=== PATIENT | female | born 1950 | race Two or more races ===

== ENCOUNTER 2021-06-09 12:12 | Inpatient (IN) | payer OTHER ==
[2021-06-09] MEDS ORDERED: ACETAMINOPHEN 1000 MG/100 ML VIAL (NON FORMULARY) IVPB ONE (14:20)
[2021-06-09] MEDS ORDERED: ACETAMINOPHEN INJECTION 100 ML IVPB ONE (14:24)
[2021-06-09 14:51] LABS: BASO % 0.8 % (0-2.0); HEMATOCRIT 42.4 % (32.4-45.2); HEMOGLOBIN 14.1 GM/dL (10.7-15.3); LYMPH % 21.6 % (8-40); MCH 28.8 pg (25.7-33.7); MCHC 33.2 g/dl (32.0-36.0); MEAN CELL VOLUME 86.7 fl (80-96); MEAN PLT VOLUME 8.3 fl (7.5-11.1); MONO % 8.8 % (3.8-10.2); NEUT % 62.8 % (42.8-82.8); PLATELET COUNT 393 10^3/uL (134-434); RBC 4.89 M/mm3 (3.60-5.2); RDW 15.1 % (11.6-15.6); WHITE BLOOD COUNT 10.3 K/mm3 (4.0-10.0)
[2021-06-09 15:16] LABS: CHLORIDE 101 mmol/L (98-107); SODIUM 139 mmol/L (136-145)
[2021-06-09 15:18] LABS: CALCIUM 9.7 mg/dL (8.5-10.1)
[2021-06-09 15:19] LABS: ALBUMIN 2.9 g/dl (3.4-5.0); ANION GAP 9 MMOL/L (8-16); BLOOD UREA NITROGEN 18.3 mg/dL (7-18); CO2 29 mmol/L (21-32); GLUCOSE,RANDOM 107 mg/dL (74-106)
[2021-06-09 15:22] LABS: CREATININE 0.7 mg/dL (0.55-1.3); SGOT/AST 10 U/L (15-37); SGPT/ALT 16 U/L (13-61)
[2021-06-09 15:23] LABS: BILIRUBIN,TOTAL 0.2 mg/dL (0.2-1); TOT PROT 8.4 g/dl (6.4-8.2)
[2021-06-09 15:25] LABS: ALK PHOS 88 U/L (45-117)
[2021-06-09 16:26] LABS: URINE APPEARANCE CLEAR; URINE BILIRUBIN NEGATIVE (NEGATIVE); URINE COLOR YELLOW; URINE GLUCOSE (UA) NEGATIVE (NEGATIVE); URINE KETONE NEGATIVE (NEGATIVE); URINE LEUK ESTERASE NEGATIVE (NEGATIVE); URINE NITRITE NEGATIVE (NEGATIVE); URINE PROTEIN NEGATIVE (NEGATIVE)
[2021-06-09] MEDS ORDERED: ASPIRIN 81 MG CHEWABLE TABLETS PO ONE (19:24)
[2021-06-09] MEDS ORDERED: ASPIRIN 81 MG CHEWABLE TABLETS ONE (19:50)
[2021-06-09] MEDS ORDERED: ALBUTEROL SO4 HFA INHALER IH PRN (21:52)
[2021-06-09] MEDS ORDERED: FAMOTIDINE 20 MG TABLET PEG SCH (22:00)
[2021-06-09] MEDS ORDERED: GABAPENTIN 400 MG CAPSULE GT SCH (22:00)
[2021-06-09] MEDS ORDERED: MONTELUKAST NA 10 MG TABLET ONE (23:21)
[2021-06-09] MEDS ORDERED: clonazePAM 0.5 MG TABLET ONE (23:21)
[2021-06-09] MEDS ORDERED: HEPARIN NA (PORCINE) 5,000 UNITS/ML 1ML VIAL ONE (23:21)
[2021-06-09] MEDS: clonazePAM 0.5 MG TABLET GT SCH (23:29)
[2021-06-09] MEDS: MONTELUKAST NA 10 MG TABLET GT SCH (23:29)
[2021-06-09] MEDS: DOCUSATE NA 100 MG/10 ML UNIT-DOSE CUPS GT SCH (23:29)
[2021-06-09] MEDS: FAMOTIDINE 40 MG/5 ML ORAL SUSPENSION PEG SCH (23:30)
[2021-06-09] MEDS: GABAPENTIN 250 MG/5 ML ORAL SOLUTION, 470 ML BOTTLE GT SCH (23:30)
[2021-06-09] MEDS: BUDESONIDE/FORMETEROL FUMARATE 160/4.5 mcg INHALER IH SCH (23:30)
[2021-06-09] MEDS: HEPARIN NA (PORCINE) 5,000 UNITS/ML 1ML VIAL SQ SCH (23:30)
[2021-06-10] MEDS ORDERED: ACETAMINOPHEN 1000 MG/100 ML VIAL (NON FORMULARY) IVPB ONE (06:16)
[2021-06-10] MEDS ORDERED: ACETAMINOPHEN INJECTION 100 ML IVPB ONE (06:20)
[2021-06-10] MEDS ORDERED: HEPARIN NA (PORCINE) 5,000 UNITS/ML 1ML VIAL ONE ×2 (06:59→17:13)
[2021-06-10] MEDS ORDERED: LEVOTHYROXINE SODIUM 200 MCG GT SCH (07:00)
[2021-06-10] MEDS: HEPARIN NA (PORCINE) 5,000 UNITS/ML 1ML VIAL SQ SCH ×3 (07:01→23:29)
[2021-06-10 08:27] LABS: BASO % 0.8 % (0-2.0); EOS % 5.9 % (0-4.5); HEMOGLOBIN 10.7 GM/dL (10.7-15.3); LYMPH % 22.7 % (8-40); MCH 28.8 pg (25.7-33.7); MCHC 33.5 g/dl (32.0-36.0); MEAN PLT VOLUME 8.2 fl (7.5-11.1); MONO % 9.8 % (3.8-10.2); NEUT % 60.8 % (42.8-82.8); PLATELET COUNT 423 10^3/uL (134-434); RBC 3.73 M/mm3 (3.60-5.2); RDW 14.9 % (11.6-15.6); WHITE BLOOD COUNT 10.3 K/mm3 (4.0-10.0)
[2021-06-10] MEDS ORDERED: PT OWN MED DRAWER 7, Y5N ONE ×3 (08:29→11:17)
[2021-06-10 08:49] LABS: CHLORIDE 105 mmol/L (98-107); SODIUM 140 mmol/L (136-145)
[2021-06-10 08:56] LABS: ANION GAP 5 MMOL/L (8-16); CALCIUM 9.2 mg/dL (8.5-10.1); CO2 30 mmol/L (21-32); GLUCOSE,RANDOM 112 mg/dL (74-106); MAGNESIUM 2.4 mg/dL (1.8-2.4)
[2021-06-10 08:59] LABS: CHOLESTEROL 165 mg/dL (50-200); CREATININE 0.6 mg/dL (0.55-1.3); SGOT/AST 11 U/L (15-37); SGPT/ALT 13 U/L (13-61); TRIGLYCERIDES 161 mg/dL (0-150)
[2021-06-10 09:00] LABS: BILIRUBIN,TOTAL 0.3 mg/dL (0.2-1); LDL CHOLESTEROL (ONLY SJRH) 112 mg/dL (5-100); TOT PROT 6.9 g/dl (6.4-8.2)
[2021-06-10 09:01] LABS: ALK PHOS 64 U/L (45-117)
[2021-06-10 09:02] LABS: HDL CHOLESTEROL 28 mg/dL (40-60)
[2021-06-10 09:17] LABS: ALBUMIN 2.2 g/dl (3.4-5.0)
[2021-06-10] MEDS: LEVOTHYROXINE 125 MCG, LEVOTHYROXINE 100 MCG PO SCH (11:52)
[2021-06-10] MEDS: clonazePAM 0.5 MG TABLET GT SCH ×2 (11:53→23:28)
[2021-06-10] MEDS: DOCUSATE NA 100 MG/10 ML UNIT-DOSE CUPS GT SCH ×2 (11:53→23:28)
[2021-06-10] MEDS: GABAPENTIN 250 MG/5 ML ORAL SOLUTION, 470 ML BOTTLE GT SCH ×2 (11:53→23:25)
[2021-06-10] MEDS: FOLIC ACID 1 MG TABLET (FP) GT SCH (11:53)
[2021-06-10] MEDS: MULTIVIT-MINERALS ORAL LIQUID GT SCH (11:53)
[2021-06-10] MEDS: ASPIRIN 81 MG CHEWABLE TABLETS GT SCH (11:53)
[2021-06-10] MEDS: FAMOTIDINE 40 MG/5 ML ORAL SUSPENSION PEG SCH ×2 (11:54→23:24)
[2021-06-10] MEDS: BUDESONIDE/FORMETEROL FUMARATE 160/4.5 mcg INHALER IH SCH ×2 (14:07→23:25)
[2021-06-10] MEDS ORDERED: ACETAMINOPHEN 650 MG/20.3 ML ORAL SOLUTION (CUPS) PO PRN (21:05)
[2021-06-10] MEDS ORDERED: ACETAMINOPHEN 650 MG/20.3 ML ORAL SOLUTION (CUPS) ONE (21:17)
[2021-06-10] MEDS ORDERED: VANCOMYCIN 1 GRAM (PRE-DOCKED) 1,000 MG/250 ML BAG IVPB ONE ×2 (21:19→21:26)
[2021-06-10] MEDS: ACETAMINOPHEN 650 MG/20.3 ML ORAL SOLUTION (CUPS) GT PRN (21:23)
[2021-06-10] MEDS: ATORVASTATIN CA 40 MG TABLET (FP) NGT SCH (23:28)
[2021-06-10] MEDS: MONTELUKAST NA 10 MG TABLET GT SCH (23:29)
[2021-06-11] MEDS: HEPARIN NA (PORCINE) 5,000 UNITS/ML 1ML VIAL SQ SCH ×3 (06:38→23:29)
[2021-06-11 07:40] LABS: EOS % 6.4 % (0-4.5); HEMATOCRIT 33.5 % (32.4-45.2); HEMOGLOBIN 11.1 GM/dL (10.7-15.3); LYMPH % 26.5 % (8-40); MCH 28.6 pg (25.7-33.7); MCHC 33.2 g/dl (32.0-36.0); MEAN CELL VOLUME 86.1 fl (80-96); MEAN PLT VOLUME 7.6 fl (7.5-11.1); MONO % 12.9 % (3.8-10.2); NEUT % 53.2 % (42.8-82.8); PLATELET COUNT 349 10^3/uL (134-434); RBC 3.89 M/mm3 (3.60-5.2); RDW 14.9 % (11.6-15.6); WHITE BLOOD COUNT 17.3 K/mm3 (4.0-10.0)
[2021-06-11] MEDS: LEVOTHYROXINE 125 MCG, LEVOTHYROXINE 100 MCG PO SCH (08:18)
[2021-06-11] MEDS ORDERED: PT OWN MED DRAWER 7, Y5N ONE ×3 (08:55→09:55)
[2021-06-11] MEDS: FOLIC ACID 1 MG TABLET (FP) GT SCH (09:02)
[2021-06-11] MEDS: clonazePAM 0.5 MG TABLET GT SCH ×2 (09:02→23:28)
[2021-06-11] MEDS: ASPIRIN 81 MG CHEWABLE TABLETS GT SCH (09:02)
[2021-06-11] MEDS: BUDESONIDE/FORMETEROL FUMARATE 160/4.5 mcg INHALER IH SCH ×2 (09:03→23:22)
[2021-06-11] MEDS: DOCUSATE NA 100 MG/10 ML UNIT-DOSE CUPS GT SCH ×2 (09:03→21:23)
[2021-06-11] MEDS: GABAPENTIN 250 MG/5 ML ORAL SOLUTION, 470 ML BOTTLE GT SCH ×2 (10:36→23:28)
[2021-06-11] MEDS: MULTIVIT-MINERALS ORAL LIQUID GT SCH (10:36)
[2021-06-11] MEDS: FAMOTIDINE 40 MG/5 ML ORAL SUSPENSION PEG SCH ×2 (10:37→23:30)
[2021-06-11] MEDS ORDERED: SODIUM CHLORIDE 1,000 ML IV STA (12:05)
[2021-06-11] MEDS ORDERED: DEXTROSE 5%-WATER 100 ML IVPB ONE (12:23)
[2021-06-11] MEDS ORDERED: CEFEPIME HCL 1 GM VIAL (RESTRICTED TO ID) ONE (12:23)
[2021-06-11] MEDS: CEFEPIME 1 GM in DEXTROSE 5%-WATER 1 GM/100 ML BAG IVPB SCH ×2 (12:37→18:57)
[2021-06-11] MEDS: VANCOMYCIN 1 GRAM (PRE-DOCKED) 1,000 MG/250 ML BAG IVPB SCH ×2 (12:37→23:31)
[2021-06-11 16:42] VITALS: BMI 28.8
[2021-06-11] MEDS ORDERED: SODIUM CHLORIDE 500 ML IV STA (17:25)
[2021-06-11] MEDS: SODIUM CHLORIDE 1,000 ML IV SCH (18:57)
[2021-06-11] MEDS: ATORVASTATIN CA 40 MG TABLET (FP) NGT SCH (23:28)
[2021-06-11] MEDS: MONTELUKAST NA 10 MG TABLET GT SCH (23:29)
[2021-06-12] MEDS ORDERED: CEFEPIME HCL 1 GM VIAL (RESTRICTED TO ID) ONE ×4 (01:38→22:09)
[2021-06-12] MEDS ORDERED: DEXTROSE 5%-WATER 100 ML IVPB ONE ×4 (01:39→22:09)
[2021-06-12] MEDS: CEFEPIME 1 GM in DEXTROSE 5%-WATER 1 GM/100 ML BAG IVPB SCH ×3 (01:56→17:28)
[2021-06-12] MEDS: LEVOTHYROXINE 125 MCG, LEVOTHYROXINE 100 MCG PO SCH (06:29)
[2021-06-12] MEDS: HEPARIN NA (PORCINE) 5,000 UNITS/ML 1ML VIAL SQ SCH ×3 (06:29→21:37)
[2021-06-12 06:49] LABS: BASO % 0.8 % (0-2.0); EOS % 9.8 % (0-4.5); HEMATOCRIT 29.7 % (32.4-45.2); LYMPH % 26.7 % (8-40); MCHC 33.7 g/dl (32.0-36.0); MEAN CELL VOLUME 85.9 fl (80-96); MEAN PLT VOLUME 8.1 fl (7.5-11.1); MONO % 9.9 % (3.8-10.2); NEUT % 52.8 % (42.8-82.8); PLATELET COUNT 373 10^3/uL (134-434); RBC 3.46 M/mm3 (3.60-5.2); RDW 14.9 % (11.6-15.6); WHITE BLOOD COUNT 9.3 K/mm3 (4.0-10.0)
[2021-06-12 07:18] LABS: CALCIUM 8.8 mg/dL (8.5-10.1)
[2021-06-12 07:19] LABS: BLOOD UREA NITROGEN 13.9 mg/dL (7-18)
[2021-06-12 07:21] LABS: CREATININE 0.5 mg/dL (0.55-1.3)
[2021-06-12 07:23] LABS: BILIRUBIN,TOTAL 0.5 mg/dL (0.2-1); TOT PROT 6.3 g/dl (6.4-8.2)
[2021-06-12] MEDS: FOLIC ACID 1 MG TABLET (FP) GT SCH (09:01)
[2021-06-12] MEDS: ASPIRIN 81 MG CHEWABLE TABLETS GT SCH (09:01)
[2021-06-12] MEDS: MULTIVIT-MINERALS ORAL LIQUID GT SCH (09:01)
[2021-06-12] MEDS: DOCUSATE NA 100 MG/10 ML UNIT-DOSE CUPS GT SCH ×2 (09:01→21:36)
[2021-06-12] MEDS: GABAPENTIN 250 MG/5 ML ORAL SOLUTION, 470 ML BOTTLE GT SCH ×2 (09:01→21:36)
[2021-06-12] MEDS: clonazePAM 0.5 MG TABLET GT SCH ×2 (09:01→21:36)
[2021-06-12] MEDS: FAMOTIDINE 40 MG/5 ML ORAL SUSPENSION PEG SCH ×2 (09:02→21:37)
[2021-06-12] MEDS: BUDESONIDE/FORMETEROL FUMARATE 160/4.5 mcg INHALER IH SCH ×2 (09:02→21:37)
[2021-06-12] MEDS: VANCOMYCIN 1 GRAM (PRE-DOCKED) 1,000 MG/250 ML BAG IVPB SCH (11:43)
[2021-06-12] MEDS: ACETAMINOPHEN 650 MG/20.3 ML ORAL SOLUTION (CUPS) GT PRN (13:38)
[2021-06-12] MEDS: INSULIN SLIDING SCALE (NOVOLOG) 1 VIAL SQ SCH ×2 (17:09→21:36)
[2021-06-12] MEDS ORDERED: INSULIN (NOVOLOG) ASPART 100 UNITS/ML 10ML VIAL ONE (19:42)
[2021-06-12] MEDS: ATORVASTATIN CA 40 MG TABLET (FP) NGT SCH (21:36)
[2021-06-12] MEDS: MONTELUKAST NA 10 MG TABLET GT SCH (21:37)
[2021-06-12] MEDS: SODIUM CHLORIDE 1,000 ML IV SCH (21:38)
[2021-06-12] MEDS ORDERED: ACETAMINOPHEN 1000 MG/100 ML VIAL (NON FORMULARY) IVPB ONE (21:58)
[2021-06-13] MEDS: VANCOMYCIN 1 GRAM (PRE-DOCKED) 1,000 MG/250 ML BAG IVPB SCH ×3 (01:30→23:37)
[2021-06-13] MEDS: CEFEPIME 1 GM in DEXTROSE 5%-WATER 1 GM/100 ML BAG IVPB SCH ×3 (03:13→17:18)
[2021-06-13] MEDS: HEPARIN NA (PORCINE) 5,000 UNITS/ML 1ML VIAL SQ SCH ×3 (05:48→21:33)
[2021-06-13] MEDS: LEVOTHYROXINE 125 MCG, LEVOTHYROXINE 100 MCG PO SCH (06:33)
[2021-06-13] MEDS: INSULIN SLIDING SCALE (NOVOLOG) 1 VIAL SQ SCH ×4 (06:33→21:33)
[2021-06-13 07:14] LABS: BASO % 0.9 % (0-2.0); HEMATOCRIT 30.2 % (32.4-45.2); HEMOGLOBIN 10.2 GM/dL (10.7-15.3); LYMPH % 23.5 % (8-40); MCH 29.3 pg (25.7-33.7); MCHC 33.6 g/dl (32.0-36.0); MEAN CELL VOLUME 87.1 fl (80-96); MEAN PLT VOLUME 8.1 fl (7.5-11.1); MONO % 10.8 % (3.8-10.2); NEUT % 55.8 % (42.8-82.8); PLATELET COUNT 356 10^3/uL (134-434); RBC 3.47 M/mm3 (3.60-5.2); RDW 15.2 % (11.6-15.6); WHITE BLOOD COUNT 9.5 K/mm3 (4.0-10.0)
[2021-06-13 07:43] LABS: ALBUMIN 2.1 g/dl (3.4-5.0); BLOOD UREA NITROGEN 10.5 mg/dL (7-18); CALCIUM 8.8 mg/dL (8.5-10.1)
[2021-06-13 07:47] LABS: CREATININE 0.5 mg/dL (0.55-1.3)
[2021-06-13 07:48] LABS: TOT PROT 6.2 g/dl (6.4-8.2)
[2021-06-13 07:49] LABS: BILIRUBIN,TOTAL 0.4 mg/dL (0.2-1)
[2021-06-13] MEDS ORDERED: PT OWN MED DRAWER 7, Y5N ONE ×5 (09:57→21:37)
[2021-06-13] MEDS ORDERED: CEFEPIME HCL 1 GM VIAL (RESTRICTED TO ID) ONE ×3 (09:57→19:58)
[2021-06-13] MEDS ORDERED: DEXTROSE 5%-WATER 100 ML IVPB ONE ×3 (09:58→19:58)
[2021-06-13] MEDS: FOLIC ACID 1 MG TABLET (FP) GT SCH (10:10)
[2021-06-13] MEDS: clonazePAM 0.5 MG TABLET GT SCH ×2 (10:10→21:33)
[2021-06-13] MEDS: DOCUSATE NA 100 MG/10 ML UNIT-DOSE CUPS GT SCH ×2 (10:10→21:32)
[2021-06-13] MEDS: MULTIVIT-MINERALS ORAL LIQUID GT SCH (10:11)
[2021-06-13] MEDS: FAMOTIDINE 40 MG/5 ML ORAL SUSPENSION PEG SCH ×2 (10:11→21:38)
[2021-06-13] MEDS: ASPIRIN 81 MG CHEWABLE TABLETS GT SCH (10:13)
[2021-06-13] MEDS: SODIUM CHLORIDE 1,000 ML IV SCH ×2 (12:25→23:37)
[2021-06-13] MEDS: GABAPENTIN 250 MG/5 ML ORAL SOLUTION, 470 ML BOTTLE GT SCH ×2 (12:37→21:34)
[2021-06-13] MEDS: BUDESONIDE/FORMETEROL FUMARATE 160/4.5 mcg INHALER IH SCH ×2 (12:40→21:35)
[2021-06-13] MEDS: MONTELUKAST NA 10 MG TABLET GT SCH (21:33)
[2021-06-13] MEDS: ATORVASTATIN CA 40 MG TABLET (FP) NGT SCH (21:33)
[2021-06-13] MEDS ORDERED: INSULIN (NOVOLOG) ASPART 100 UNITS/ML 10ML VIAL ONE (21:36)
[2021-06-14] MEDS: CEFEPIME 1 GM in DEXTROSE 5%-WATER 1 GM/100 ML BAG IVPB SCH ×3 (01:56→18:01)
[2021-06-14] MEDS: HEPARIN NA (PORCINE) 5,000 UNITS/ML 1ML VIAL SQ SCH ×3 (06:34→22:00)
[2021-06-14] MEDS: INSULIN SLIDING SCALE (NOVOLOG) 1 VIAL SQ SCH ×4 (06:35→22:21)
[2021-06-14] MEDS: LEVOTHYROXINE 125 MCG, LEVOTHYROXINE 100 MCG PO SCH (06:35)
[2021-06-14] MEDS ORDERED: DEXTROSE 5%-WATER 100 ML IVPB ONE ×2 (09:38→16:56)
[2021-06-14] MEDS ORDERED: CEFEPIME HCL 1 GM VIAL (RESTRICTED TO ID) ONE ×2 (09:38→16:56)
[2021-06-14] MEDS: ASPIRIN 81 MG CHEWABLE TABLETS GT SCH (09:42)
[2021-06-14] MEDS: clonazePAM 0.5 MG TABLET GT SCH ×2 (09:42→22:01)
[2021-06-14] MEDS: MULTIVIT-MINERALS ORAL LIQUID GT SCH (09:43)
[2021-06-14] MEDS: FOLIC ACID 1 MG TABLET (FP) GT SCH (09:43)
[2021-06-14] MEDS: DOCUSATE NA 100 MG/10 ML UNIT-DOSE CUPS GT SCH ×2 (09:43→21:59)
[2021-06-14] MEDS: GABAPENTIN 250 MG/5 ML ORAL SOLUTION, 470 ML BOTTLE GT SCH ×2 (09:44→22:01)
[2021-06-14] MEDS: FAMOTIDINE 40 MG/5 ML ORAL SUSPENSION PEG SCH ×2 (09:44→22:02)
[2021-06-14] MEDS: BUDESONIDE/FORMETEROL FUMARATE 160/4.5 mcg INHALER IH SCH ×2 (09:45→22:18)
[2021-06-14] MEDS: VANCOMYCIN 1 GRAM (PRE-DOCKED) 1,000 MG/250 ML BAG IVPB SCH (12:42)
[2021-06-14] MEDS: ATORVASTATIN CA 40 MG TABLET (FP) NGT SCH (21:59)
[2021-06-14] MEDS: MONTELUKAST NA 10 MG TABLET GT SCH (22:01)
[2021-06-15] MEDS: VANCOMYCIN 1 GRAM (PRE-DOCKED) 1,000 MG/250 ML BAG IVPB SCH ×3 (00:40→23:42)
[2021-06-15] MEDS ORDERED: CEFEPIME HCL 1 GM VIAL (RESTRICTED TO ID) ONE ×4 (02:50→23:39)
[2021-06-15] MEDS ORDERED: DEXTROSE 5%-WATER 100 ML IVPB ONE ×4 (02:51→23:39)
[2021-06-15] MEDS: CEFEPIME 1 GM in DEXTROSE 5%-WATER 1 GM/100 ML BAG IVPB SCH ×3 (02:58→17:09)
[2021-06-15] MEDS: LEVOTHYROXINE 125 MCG, LEVOTHYROXINE 100 MCG PO SCH (06:26)
[2021-06-15] MEDS: SODIUM CHLORIDE 1,000 ML IV SCH ×2 (06:26→22:08)
[2021-06-15] MEDS: HEPARIN NA (PORCINE) 5,000 UNITS/ML 1ML VIAL SQ SCH ×3 (06:26→22:21)
[2021-06-15] MEDS: INSULIN SLIDING SCALE (NOVOLOG) 1 VIAL SQ SCH ×4 (07:56→22:21)
[2021-06-15] MEDS ORDERED: PT OWN MED DRAWER 7, Y5N ONE ×2 (09:38→22:16)
[2021-06-15] MEDS: clonazePAM 0.5 MG TABLET GT SCH ×2 (09:55→22:21)
[2021-06-15] MEDS: GABAPENTIN 250 MG/5 ML ORAL SOLUTION, 470 ML BOTTLE GT SCH ×2 (09:55→22:21)
[2021-06-15] MEDS: FAMOTIDINE 40 MG/5 ML ORAL SUSPENSION PEG SCH ×2 (09:56→22:21)
[2021-06-15] MEDS: MULTIVIT-MINERALS ORAL LIQUID GT SCH (09:56)
[2021-06-15] MEDS: DOCUSATE NA 100 MG/10 ML UNIT-DOSE CUPS GT SCH ×2 (09:56→22:20)
[2021-06-15] MEDS: FOLIC ACID 1 MG TABLET (FP) GT SCH (09:57)
[2021-06-15] MEDS: ASPIRIN 81 MG CHEWABLE TABLETS GT SCH (10:02)
[2021-06-15 10:14] LABS: BASO % 1.4 % (0-2.0); EOS % 7.4 % (0-4.5); HEMATOCRIT 33.6 % (32.4-45.2); HEMOGLOBIN 11.2 GM/dL (10.7-15.3); LYMPH % 23.1 % (8-40); MCH 28.3 pg (25.7-33.7); MCHC 33.5 g/dl (32.0-36.0); MEAN CELL VOLUME 84.5 fl (80-96); MEAN PLT VOLUME 7.4 fl (7.5-11.1); MONO % 9.9 % (3.8-10.2); NEUT % 58.2 % (42.8-82.8); PLATELET COUNT 386 10^3/uL (134-434); RBC 3.97 M/mm3 (3.60-5.2); RDW 15.1 % (11.6-15.6); WHITE BLOOD COUNT 9.4 K/mm3 (4.0-10.0)
[2021-06-15 10:50] LABS: CREATININE 0.5 mg/dL (0.55-1.3)
[2021-06-15 10:51] LABS: ALBUMIN 2.2 g/dl (3.4-5.0); BLOOD UREA NITROGEN 6.5 mg/dL (7-18); CALCIUM 9.4 mg/dL (8.5-10.1); TOT PROT 6.7 g/dl (6.4-8.2)
[2021-06-15 11:00] LABS: BILIRUBIN,TOTAL 0.4 mg/dL (0.2-1)
[2021-06-15] MEDS: BUDESONIDE/FORMETEROL FUMARATE 160/4.5 mcg INHALER IH SCH ×2 (12:41→22:22)
[2021-06-15] MEDS: ACETAMINOPHEN 650 MG/20.3 ML ORAL SOLUTION (CUPS) GT PRN (22:19)
[2021-06-15] MEDS: MONTELUKAST NA 10 MG TABLET GT SCH (22:20)
[2021-06-15] MEDS: ATORVASTATIN CA 40 MG TABLET (FP) NGT SCH (22:20)
[2021-06-16] MEDS: CEFEPIME 1 GM in DEXTROSE 5%-WATER 1 GM/100 ML BAG IVPB SCH ×3 (03:20→17:16)
[2021-06-16] MEDS ORDERED: PT OWN MED DRAWER 7, Y5N ONE ×4 (06:13→21:54)
[2021-06-16] MEDS: HEPARIN NA (PORCINE) 5,000 UNITS/ML 1ML VIAL SQ SCH ×3 (06:18→21:58)
[2021-06-16] MEDS: INSULIN SLIDING SCALE (NOVOLOG) 1 VIAL SQ SCH ×4 (06:18→21:59)
[2021-06-16] MEDS ORDERED: DEXTROSE 5%-WATER 100 ML IVPB ONE ×2 (09:22→16:54)
[2021-06-16] MEDS ORDERED: CEFEPIME HCL 1 GM VIAL (RESTRICTED TO ID) ONE ×2 (09:22→16:54)
[2021-06-16] MEDS: FOLIC ACID 1 MG TABLET (FP) GT SCH (09:24)
[2021-06-16] MEDS: ASPIRIN 81 MG CHEWABLE TABLETS GT SCH (09:24)
[2021-06-16] MEDS: DOCUSATE NA 100 MG/10 ML UNIT-DOSE CUPS GT SCH ×2 (09:25→21:58)
[2021-06-16] MEDS: LEVOTHYROXINE 125 MCG, LEVOTHYROXINE 100 MCG PO SCH (09:25)
[2021-06-16] MEDS: clonazePAM 0.5 MG TABLET GT SCH ×2 (09:25→22:03)
[2021-06-16] MEDS: FAMOTIDINE 40 MG/5 ML ORAL SUSPENSION PEG SCH ×2 (09:25→21:59)
[2021-06-16] MEDS: GABAPENTIN 250 MG/5 ML ORAL SOLUTION, 470 ML BOTTLE GT SCH ×2 (09:26→21:59)
[2021-06-16] MEDS: MULTIVIT-MINERALS ORAL LIQUID GT SCH (09:26)
[2021-06-16] MEDS: BUDESONIDE/FORMETEROL FUMARATE 160/4.5 mcg INHALER IH SCH ×2 (09:27→21:59)
[2021-06-16] MEDS: SODIUM CHLORIDE 1,000 ML IV SCH (21:52)
[2021-06-16] MEDS: ATORVASTATIN CA 40 MG TABLET (FP) NGT SCH (21:59)
[2021-06-16] MEDS: MONTELUKAST NA 10 MG TABLET GT SCH (21:59)
[2021-06-16] MEDS: ACETAMINOPHEN 650 MG/20.3 ML ORAL SOLUTION (CUPS) GT PRN (22:00)
[2021-06-17] MEDS ORDERED: CEFEPIME HCL 1 GM VIAL (RESTRICTED TO ID) ONE ×4 (02:09→17:35)
[2021-06-17] MEDS ORDERED: DEXTROSE 5%-WATER 100 ML IVPB ONE ×2 (02:09→09:02)
[2021-06-17] MEDS: CEFEPIME 1 GM in DEXTROSE 5%-WATER 1 GM/100 ML BAG IVPB SCH ×3 (02:17→17:51)
[2021-06-17] MEDS ORDERED: PT OWN MED DRAWER 7, Y5N ONE ×5 (06:48→22:20)
[2021-06-17] MEDS: LEVOTHYROXINE 125 MCG, LEVOTHYROXINE 100 MCG PO SCH (07:34)
[2021-06-17] MEDS: INSULIN SLIDING SCALE (NOVOLOG) 1 VIAL SQ SCH ×4 (07:38→21:35)
[2021-06-17] MEDS: ASPIRIN 81 MG CHEWABLE TABLETS GT SCH (09:07)
[2021-06-17] MEDS: MULTIVIT-MINERALS ORAL LIQUID GT SCH (09:07)
[2021-06-17] MEDS: clonazePAM 0.5 MG TABLET GT SCH ×2 (09:07→21:35)
[2021-06-17] MEDS: FOLIC ACID 1 MG TABLET (FP) GT SCH (09:07)
[2021-06-17] MEDS: DOCUSATE NA 100 MG/10 ML UNIT-DOSE CUPS GT SCH ×2 (09:07→21:35)
[2021-06-17] MEDS: GABAPENTIN 250 MG/5 ML ORAL SOLUTION, 470 ML BOTTLE GT SCH ×2 (09:08→22:42)
[2021-06-17] MEDS: FAMOTIDINE 40 MG/5 ML ORAL SUSPENSION PEG SCH ×2 (09:08→21:36)
[2021-06-17] MEDS: BUDESONIDE/FORMETEROL FUMARATE 160/4.5 mcg INHALER IH SCH ×2 (09:09→21:36)
[2021-06-17 12:37] LABS: BASO % 0.8 % (0-2.0); EOS % 6.4 % (0-4.5); HEMATOCRIT 32.8 % (32.4-45.2); HEMOGLOBIN 11.1 GM/dL (10.7-15.3); LYMPH % 18.9 % (8-40); MCHC 33.9 g/dl (32.0-36.0); MEAN CELL VOLUME 85.7 fl (80-96); MEAN PLT VOLUME 7.6 fl (7.5-11.1); MONO % 9.6 % (3.8-10.2); NEUT % 64.3 % (42.8-82.8); PLATELET COUNT 353 10^3/uL (134-434); RBC 3.82 M/mm3 (3.60-5.2); WHITE BLOOD COUNT 9.9 K/mm3 (4.0-10.0)
[2021-06-17 13:01] LABS: ALBUMIN 2.1 g/dl (3.4-5.0); CALCIUM 8.7 mg/dL (8.5-10.1)
[2021-06-17 13:02] LABS: BLOOD UREA NITROGEN 10.4 mg/dL (7-18)
[2021-06-17 13:05] LABS: CREATININE 0.6 mg/dL (0.55-1.3)
[2021-06-17 13:06] LABS: BILIRUBIN,TOTAL 0.2 mg/dL (0.2-1); TOT PROT 6.4 g/dl (6.4-8.2)
[2021-06-17] MEDS: SODIUM CHLORIDE 1,000 ML IV SCH (17:51)
[2021-06-17] MEDS: ATORVASTATIN CA 40 MG TABLET (FP) NGT SCH (21:35)
[2021-06-17] MEDS: MONTELUKAST NA 10 MG TABLET GT SCH (21:36)
[2021-06-18] MEDS: CEFEPIME 1 GM in DEXTROSE 5%-WATER 1 GM/100 ML BAG IVPB SCH ×2 (02:00→09:55)
[2021-06-18] MEDS ORDERED: CEFEPIME HCL 1 GM VIAL (RESTRICTED TO ID) ONE ×2 (02:29→08:44)
[2021-06-18] MEDS ORDERED: DEXTROSE 5%-WATER 100 ML IVPB ONE ×2 (02:29→08:44)
[2021-06-18] MEDS ORDERED: PT OWN MED DRAWER 7, Y5N ONE ×2 (06:53→08:44)
[2021-06-18] MEDS: INSULIN SLIDING SCALE (NOVOLOG) 1 VIAL SQ SCH ×2 (07:01→11:51)
[2021-06-18] MEDS: LEVOTHYROXINE 125 MCG, LEVOTHYROXINE 100 MCG PO SCH (07:02)
[2021-06-18] MEDS: ASPIRIN 81 MG CHEWABLE TABLETS GT SCH (09:54)
[2021-06-18] MEDS: FOLIC ACID 1 MG TABLET (FP) GT SCH (09:54)
[2021-06-18] MEDS: GABAPENTIN 250 MG/5 ML ORAL SOLUTION, 470 ML BOTTLE GT SCH (09:56)
[2021-06-18] MEDS: clonazePAM 0.5 MG TABLET GT SCH (09:56)
[2021-06-18] MEDS: MULTIVIT-MINERALS ORAL LIQUID GT SCH (09:56)
[2021-06-18] MEDS: FAMOTIDINE 40 MG/5 ML ORAL SUSPENSION PEG SCH (09:58)
[2021-06-18] MEDS: DOCUSATE NA 100 MG/10 ML UNIT-DOSE CUPS GT SCH (10:59)
[2021-06-18] MEDS: BUDESONIDE/FORMETEROL FUMARATE 160/4.5 mcg INHALER IH SCH (11:50)
[2021-06-18 14:12] VITALS: BP 144/89; TEMP 99.1
[2021-06-18 14:56] VITALS: PULSE 93
== END 2021-06-18 16:00 | DRG 394 ==
LOC: JER 12:12 → JERBED 13:21 → OBSVTOIN 13:21 → J2W 06-10 22:37
PROVIDERS: ADMIT Internal Medicine; ATTEND Family Medicine
PROC: 5A1945Z Respiratory Ventilation, 24-96 Consecutive Hours (ICD-10-PCS; principal; 2021-06-09)
DX: K94.22 Gastrostomy infection (principal); J96.12 Chronic respiratory failure with hypercapnia; J96.11 Chronic respiratory failure with hypoxia; E78.5 Hyperlipidemia, unspecified; D72.829 Elevated white blood cell count, unspecified; R50.9 Fever, unspecified; I10 Essential (primary) hypertension; E11.9 Type 2 diabetes mellitus without complications; R07.89 Other chest pain; D64.9 Anemia, unspecified; J44.9 Chronic obstructive pulmonary disease, unspecified; F41.8 Other specified anxiety disorders; I25.119 Atherosclerotic heart disease of native coronary artery with unspecified angina pectoris; R19.7 Diarrhea, unspecified; E03.9 Hypothyroidism, unspecified; N28.1 Cyst of kidney, acquired; I25.2 Old myocardial infarction; N20.0 Calculus of kidney; Z93.0 Tracheostomy status; Z74.01 Bed confinement status; Z86.718 Personal history of other venous thrombosis and embolism; Z85.038 Personal history of other malignant neoplasm of large intestine
CPT/HCPCS: 36415; 71045-TC-FY; 74018-TC-FY; 74177-TC; 80053; 80061; 81003; 82550; 82962; 83605; 83735; 84443; 84484; 85025; 87040; 87070; 87086; 87186; 87205; 87804; 87899; 93005; 93010; 94002; 99285-25; C9803; G0480; J0131; J1644; Q9967; U0003; U0005

== ENCOUNTER 2022-04-10 22:05 | Inpatient (IN) | payer OTHER ==
[2022-04-10 22:18] VITALS: BMI 29.2
[2022-04-10] MEDS ORDERED: SODIUM CHLORIDE 0.9% 500 ML INFUS.BAG IV ONE (22:18)
[2022-04-10 23:14] LABS: BASO % 0.6 % (0-2.0); EOS % 3.1 % (0-4.5); HEMATOCRIT 40.6 % (32.4-45.2); HEMOGLOBIN 13.2 GM/dL (10.7-15.3); LYMPH % 25.5 % (8-40); MCH 29.9 pg (25.7-33.7); MCHC 32.6 g/dl (32.0-36.0); MEAN CELL VOLUME 91.8 fl (80-96); MEAN PLT VOLUME 7.7 fl (7.5-11.1); MONO % 10.8 % (3.8-10.2); PLATELET COUNT 377 10^3/uL (134-434); RBC 4.42 M/mm3 (3.60-5.2); RDW 15.7 % (11.6-15.6)
[2022-04-10 23:22] LABS: INR 1.19 (0.83-1.09); PROTHROMBIN TIME (PATIENT) 13.7 SEC (9.7-13.0)
[2022-04-10 23:24] LABS: ACTIVATED PTT 28.3 SECONDS (25.2-36.5)
[2022-04-10 23:35] LABS: CALCIUM 8.9 mg/dL (8.5-10.1)
[2022-04-10 23:36] LABS: ALBUMIN 1.9 g/dl (3.4-5.0); BLOOD UREA NITROGEN 12.2 mg/dL (7-18)
[2022-04-10 23:39] LABS: CREATININE 0.6 mg/dL (0.55-1.3)
[2022-04-10 23:40] LABS: BILIRUBIN,TOTAL 0.5 mg/dL (0.2-1)
[2022-04-10 23:41] LABS: TOT PROT 6.9 g/dl (6.4-8.2)
[2022-04-11] MEDS ORDERED: VANCOMYCIN 1 GM in D5W (PRE-DOCKED) 1,000 MG/250 ML IVPB ONE (00:44)
[2022-04-11] MEDS ORDERED: CEFEPIME HCL/D5W 2 GM/50 ML BAG IVPB ONE (00:44)
[2022-04-11] MEDS ORDERED: CEFEPIME 2 GM/100 ML BAG IVPB ONE ×3 (01:02→02:03)
[2022-04-11] MEDS ORDERED: VANCOMYCIN/WATER FOR INJ (PEG) 1,000 MG/200 ML BAG IVPB ONE (01:06)
[2022-04-11] MEDS ORDERED: ACETAMINOPHEN 650 MG/20.3 ML ORAL SOLUTION (CUPS) GT PRN (04:04)
[2022-04-11 04:32] LABS: CALCIUM 8.8 mg/dL (8.5-10.1)
[2022-04-11 04:33] LABS: EPI CELLS 23 /uL (0-25.1); HYALINE CASTS 2 /uL (0-3.1); URINE APPEARANCE CLEAR; URINE BACTERIA 9 /uL (0-1359); URINE BILIRUBIN NEGATIVE (NEGATIVE); URINE COLOR YELLOW; URINE GLUCOSE (UA) NEGATIVE (NEGATIVE); URINE KETONE TRACE (NEGATIVE); URINE LEUK ESTERASE 1+ (NEGATIVE); URINE NITRITE NEGATIVE (NEGATIVE); URINE PROTEIN NEGATIVE (NEGATIVE); URINE RBC 4 /uL (0-23.9); URINE WBC 145 /uL (0-25.8)
[2022-04-11 04:36] LABS: CREATININE 0.6 mg/dL (0.55-1.3)
[2022-04-11] MEDS ORDERED: ACETAMINOPHEN 1000 MG/100 ML BAG IVPB ONE (04:57)
[2022-04-11] MEDS ORDERED: ACETAMINOPHEN INJECTION 100 ML IVPB ONE ×2 (05:02→20:25)
[2022-04-11 05:29] LABS: ARTERIAL BLD GAS O2 SATURATION 99.5 % (95-98); ARTERIAL BLOOD GAS BASE EXCESS 5.3 mmol/L (-2-2); ARTERIAL BLOOD GAS PO2 204.4 mmHg (80-100)
[2022-04-11 07:17] LABS: N-TERMINAL BNP 568.9 pg/ml (5-125)
[2022-04-11 08:37] LABS: BASO % 0.6 % (0-2.0); EOS % 0.5 % (0-4.5); HEMATOCRIT 39.3 % (32.4-45.2); HEMOGLOBIN 12.9 GM/dL (10.7-15.3); MCHC 32.8 g/dl (32.0-36.0); MEAN CELL VOLUME 91.5 fl (80-96); MEAN PLT VOLUME 7.7 fl (7.5-11.1); MONO % 10.3 % (3.8-10.2); NEUT % 74.6 % (42.8-82.8); PLATELET COUNT 379 10^3/uL (134-434); RDW 15.5 % (11.6-15.6); WHITE BLOOD COUNT 16.2 K/mm3 (4.0-10.0)
[2022-04-11 08:47] LABS: YEAST NEGATIVE (NEGATIVE)
[2022-04-11] MEDS: HEPARIN NA (PORCINE) 5,000 UNITS/ML 1ML VIAL SQ SCH ×2 (08:53→23:00)
[2022-04-11 08:59] LABS: BLOOD UREA NITROGEN 14.3 mg/dL (7-18); CALCIUM 8.9 mg/dL (8.5-10.1)
[2022-04-11 09:00] LABS: ALBUMIN 2.1 g/dl (3.4-5.0)
[2022-04-11 09:02] LABS: CREATININE 0.5 mg/dL (0.55-1.3)
[2022-04-11 09:04] LABS: TOT PROT 6.8 g/dl (6.4-8.2)
[2022-04-11 09:07] LABS: BILIRUBIN,TOTAL 0.3 mg/dL (0.2-1)
[2022-04-11] MEDS ORDERED: ALBUTEROL SO4 2.5/IPRATROPIUM 0.5 INH SOL 3 ML VIAL.NEB. NEB ONE (20:17)
[2022-04-11] MEDS: ALBUTEROL SO4 2.5/IPRATROPIUM 0.5 INH SOL 3 ML VIAL.NEB. NEB PRN (20:24)
[2022-04-11] MEDS ORDERED: CEFEPIME 1 GM/100 ML BAG IVPB ONE (20:26)
[2022-04-11] MEDS: ACETAMINOPHEN 1000 MG/100 ML BAG IVPB PRN (20:27)
[2022-04-11] MEDS: CEFEPIME 1 GM in DEXTROSE 5%-WATER 100 ML IVPB SCH (20:27)
[2022-04-12] MEDS: CEFEPIME 1 GM in DEXTROSE 5%-WATER 100 ML IVPB SCH ×3 (02:52→18:23)
[2022-04-12] MEDS ORDERED: CEFEPIME 1 GM/100 ML BAG IVPB ONE ×3 (05:31→18:17)
[2022-04-12] MEDS ORDERED: VANCOMYCIN/WATER FOR INJ (PEG) 1,000 MG/200 ML BAG IVPB ONE (05:31)
[2022-04-12] MEDS ORDERED: HEPARIN NA (PORCINE) 5,000 UNITS/ML 1ML VIAL ONE (05:31)
[2022-04-12] MEDS: VANCOMYCIN/WATER FOR INJ (PEG) 1,000 MG/200 ML BAG IVPB SCH (05:51)
[2022-04-12] MEDS: HEPARIN NA (PORCINE) 5,000 UNITS/ML 1ML VIAL SQ SCH ×2 (05:52→21:44)
[2022-04-12] MEDS ORDERED: ACETAMINOPHEN INJECTION 100 ML IVPB ONE ×2 (06:22→15:25)
[2022-04-12] MEDS: ACETAMINOPHEN 1000 MG/100 ML BAG IVPB PRN (06:24)
[2022-04-12] MEDS ORDERED: ACETAMINOPHEN 325 MG TABLET (FP) PO PRN (15:09)
[2022-04-12] MEDS ORDERED: clonazePAM 0.5 MG TABLET GT PRN (15:10)
[2022-04-12] MEDS ORDERED: ACETAMINOPHEN 1000 MG/100 ML BAG IVPB PRN (15:15)
[2022-04-12] MEDS ORDERED: clonazePAM 0.5 MG TABLET ONE (16:45)
[2022-04-12] MEDS: INSULIN SLIDING SCALE (NOVOLOG) 1 VIAL SQ SCH ×2 (17:58→21:53)
[2022-04-12] MEDS: ROSUVASTATIN CA 20 MG TABLET NGT SCH (21:44)
[2022-04-12] MEDS: DOCUSATE NA 100 MG/10 ML UNIT-DOSE CUPS GT SCH (21:44)
[2022-04-12] MEDS: GABAPENTIN 400 MG CAPSULE GT SCH (21:45)
[2022-04-12] MEDS: FAMOTIDINE 20 MG TABLET PEG SCH (21:45)
[2022-04-12] MEDS: BUDESONIDE/FORMETEROL FUMARATE 160/4.5 mcg INHALER IH SCH (22:30)
[2022-04-13] MEDS ORDERED: DEXTROSE 5%-WATER 100 ML IVPB ONE ×3 (01:34→17:21)
[2022-04-13] MEDS ORDERED: CEFEPIME HCL 1 GM VIAL (RESTRICTED TO ID) ONE ×3 (01:34→17:21)
[2022-04-13] MEDS: CEFEPIME 1 GM in DEXTROSE 5%-WATER 100 ML IVPB SCH ×3 (02:30→17:38)
[2022-04-13] MEDS: VANCOMYCIN/WATER FOR INJ (PEG) 1,000 MG/200 ML BAG IVPB SCH ×2 (06:03→21:47)
[2022-04-13] MEDS: HEPARIN NA (PORCINE) 5,000 UNITS/ML 1ML VIAL SQ SCH ×2 (06:09→21:51)
[2022-04-13] MEDS: INSULIN SLIDING SCALE (NOVOLOG) 1 VIAL SQ SCH ×4 (06:10→22:46)
[2022-04-13] MEDS: LEVOTHYROXINE 100 MCG, LEVOTHYROXINE 125 MCG GT SCH (06:10)
[2022-04-13] MEDS ORDERED: LEVOTHYROXINE NA 100 MCG TABLET (FP) PO SCH (07:00)
[2022-04-13 08:55] LABS: HEMATOCRIT 39.5 % (32.4-45.2); HEMOGLOBIN 12.8 GM/dL (10.7-15.3); MCH 30.1 pg (25.7-33.7); MCHC 32.4 g/dl (32.0-36.0); MEAN PLT VOLUME 7.9 fl (7.5-11.1); PLATELET COUNT 335 10^3/uL (134-434); RBC 4.25 M/mm3 (3.60-5.2); RDW 15.4 % (11.6-15.6); WHITE BLOOD COUNT 20.5 K/mm3 (4.0-10.0)
[2022-04-13 09:27] LABS: ANISOCYTOSIS 0; HELMET CELLS 0; HOWELL-JOLLY BODIES 0; MACROCYTOSIS 0; OVALOCYTE 0; ROULEAU 0; SICKELED CELLS 0; TARGET CELLS 0; TEAR DROP CELLS 0; TOXIC GRANULATION 0
[2022-04-13] MEDS: ASPIRIN 81 MG CHEWABLE TABLETS GT SCH (09:42)
[2022-04-13] MEDS: FAMOTIDINE 20 MG TABLET PEG SCH ×2 (09:42→22:43)
[2022-04-13] MEDS: GABAPENTIN 400 MG CAPSULE GT SCH ×2 (09:42→22:42)
[2022-04-13] MEDS: BUDESONIDE/FORMETEROL FUMARATE 160/4.5 mcg INHALER IH SCH ×2 (09:42→22:44)
[2022-04-13] MEDS: DOCUSATE NA 100 MG/10 ML UNIT-DOSE CUPS GT SCH ×2 (09:42→22:42)
[2022-04-13 09:47] LABS: BILIRUBIN,TOTAL 0.4 mg/dL (0.2-1); CALCIUM 9.1 mg/dL (8.5-10.1); CREATININE 0.4 mg/dL (0.55-1.3); TOT PROT 6.6 g/dl (6.4-8.2)
[2022-04-13] MEDS ORDERED: DEXTROSE 50%-WATER 25 GM/50 ML DISP.SYRIN ONE (16:36)
[2022-04-13] MEDS: ROSUVASTATIN CA 20 MG TABLET NGT SCH (22:42)
[2022-04-14] MEDS ORDERED: DEXTROSE 50%-WATER - 25 GM/50 ML VIAL IVPUSH PRN (01:03)
[2022-04-14] MEDS ORDERED: CEFEPIME HCL 1 GM VIAL (RESTRICTED TO ID) ONE ×2 (01:23→10:01)
[2022-04-14] MEDS ORDERED: DEXTROSE 5%-WATER 100 ML IVPB ONE ×2 (01:23→10:01)
[2022-04-14] MEDS: CEFEPIME 1 GM in DEXTROSE 5%-WATER 100 ML IVPB SCH ×3 (01:29→17:13)
[2022-04-14] MEDS: HEPARIN NA (PORCINE) 5,000 UNITS/ML 1ML VIAL SQ SCH ×3 (06:12→22:31)
[2022-04-14] MEDS: VANCOMYCIN/WATER FOR INJ (PEG) 1,000 MG/200 ML BAG IVPB SCH ×2 (06:12→16:54)
[2022-04-14] MEDS: INSULIN SLIDING SCALE (NOVOLOG) 1 VIAL SQ SCH ×4 (06:13→22:45)
[2022-04-14] MEDS: LEVOTHYROXINE 100 MCG, LEVOTHYROXINE 125 MCG GT SCH (06:13)
[2022-04-14] MEDS: BUDESONIDE/FORMETEROL FUMARATE 160/4.5 mcg INHALER IH SCH ×2 (10:07→22:32)
[2022-04-14] MEDS: GABAPENTIN 400 MG CAPSULE GT SCH ×2 (10:07→22:32)
[2022-04-14] MEDS: FAMOTIDINE 20 MG TABLET PEG SCH ×2 (10:07→22:32)
[2022-04-14] MEDS: DOCUSATE NA 100 MG/10 ML UNIT-DOSE CUPS GT SCH ×2 (10:07→22:32)
[2022-04-14] MEDS: ASPIRIN 81 MG CHEWABLE TABLETS GT SCH (10:08)
[2022-04-14] MEDS ORDERED: ACETAMINOPHEN 1000 MG/100 ML BAG IVPB ONE (18:48)
[2022-04-14] MEDS ORDERED: ACETAMINOPHEN 325 MG TABLET (FP) PO PRN (18:52)
[2022-04-14] MEDS: ROSUVASTATIN CA 20 MG TABLET NGT SCH (22:32)
[2022-04-15] MEDS: CEFEPIME 1 GM in DEXTROSE 5%-WATER 100 ML IVPB SCH ×3 (01:19→18:58)
[2022-04-15] MEDS: ALBUTEROL SO4 2.5/IPRATROPIUM 0.5 INH SOL 3 ML VIAL.NEB. NEB PRN ×2 (03:20→23:15)
[2022-04-15] MEDS: HEPARIN NA (PORCINE) 5,000 UNITS/ML 1ML VIAL SQ SCH ×5 (05:29→21:26)
[2022-04-15] MEDS: VANCOMYCIN/WATER FOR INJ (PEG) 1,000 MG/200 ML BAG IVPB SCH ×3 (05:29→19:43)
[2022-04-15] MEDS: LEVOTHYROXINE 100 MCG, LEVOTHYROXINE 125 MCG GT SCH (06:14)
[2022-04-15] MEDS: INSULIN SLIDING SCALE (NOVOLOG) 1 VIAL SQ SCH ×4 (06:14→21:29)
[2022-04-15 09:03] LABS: BASO % 0.9 % (0-2.0); EOS % 3.2 % (0-4.5); HEMATOCRIT 37.5 % (32.4-45.2); HEMOGLOBIN 12.4 GM/dL (10.7-15.3); LYMPH % 17.1 % (8-40); MCH 30.1 pg (25.7-33.7); MCHC 33.1 g/dl (32.0-36.0); MEAN CELL VOLUME 91.1 fl (80-96); MEAN PLT VOLUME 7.6 fl (7.5-11.1); MONO % 10.1 % (3.8-10.2); NEUT % 68.7 % (42.8-82.8); PLATELET COUNT 343 10^3/uL (134-434); RBC 4.11 M/mm3 (3.60-5.2); RDW 15.2 % (11.6-15.6); WHITE BLOOD COUNT 12.3 K/mm3 (4.0-10.0)
[2022-04-15 09:28] LABS: CALCIUM 8.9 mg/dL (8.5-10.1)
[2022-04-15 09:29] LABS: ALBUMIN 1.7 g/dl (3.4-5.0); BLOOD UREA NITROGEN 13.3 mg/dL (7-18)
[2022-04-15 09:32] LABS: CREATININE 0.3 mg/dL (0.55-1.3)
[2022-04-15 09:34] LABS: BILIRUBIN,TOTAL 0.3 mg/dL (0.2-1)
[2022-04-15] MEDS: ASPIRIN 81 MG CHEWABLE TABLETS GT SCH (09:34)
[2022-04-15] MEDS: FAMOTIDINE 20 MG TABLET PEG SCH ×2 (09:34→21:26)
[2022-04-15] MEDS: GABAPENTIN 400 MG CAPSULE GT SCH ×2 (09:34→21:26)
[2022-04-15] MEDS: DOCUSATE NA 100 MG/10 ML UNIT-DOSE CUPS GT SCH ×2 (09:35→21:26)
[2022-04-15] MEDS: BUDESONIDE/FORMETEROL FUMARATE 160/4.5 mcg INHALER IH SCH ×2 (09:35→21:27)
[2022-04-15 09:37] LABS: N-TERMINAL BNP 233.7 pg/ml (5-125)
[2022-04-15] MEDS: FUROSEMIDE 40 MG/4 ML INJECTABLE VIAL IVPUSH SCH (09:38)
[2022-04-15] MEDS: ACETAMINOPHEN 1000 MG/100 ML BAG IVPB PRN (17:41)
[2022-04-15] MEDS: ROSUVASTATIN CA 20 MG TABLET NGT SCH (21:26)
[2022-04-16] MEDS: ACETAMINOPHEN 1000 MG/100 ML BAG IVPB PRN (01:09)
[2022-04-16] MEDS: CEFEPIME 1 GM in DEXTROSE 5%-WATER 100 ML IVPB SCH ×4 (01:09→19:33)
[2022-04-16 05:45] LABS: BASO % 0.9 % (0-2.0); EOS % 3.7 % (0-4.5); HEMATOCRIT 35.9 % (32.4-45.2); HEMOGLOBIN 11.9 GM/dL (10.7-15.3); LYMPH % 26.3 % (8-40); MCH 30.2 pg (25.7-33.7); MEAN CELL VOLUME 91.6 fl (80-96); MEAN PLT VOLUME 8.2 fl (7.5-11.1); MONO % 10.6 % (3.8-10.2); NEUT % 58.5 % (42.8-82.8); PLATELET COUNT 342 10^3/uL (134-434); RBC 3.92 M/mm3 (3.60-5.2); RDW 14.8 % (11.6-15.6); WHITE BLOOD COUNT 12.9 K/mm3 (4.0-10.0)
[2022-04-16 06:06] LABS: ALBUMIN 1.8 g/dl (3.4-5.0); CALCIUM 8.4 mg/dL (8.5-10.1)
[2022-04-16 06:07] LABS: BLOOD UREA NITROGEN 12.7 mg/dL (7-18)
[2022-04-16] MEDS: LEVOTHYROXINE 100 MCG, LEVOTHYROXINE 125 MCG GT SCH (06:07)
[2022-04-16 06:10] LABS: CREATININE 0.4 mg/dL (0.55-1.3)
[2022-04-16 06:11] LABS: BILIRUBIN,TOTAL 0.2 mg/dL (0.2-1); TOT PROT 6.1 g/dl (6.4-8.2)
[2022-04-16] MEDS: INSULIN SLIDING SCALE (NOVOLOG) 1 VIAL SQ SCH ×4 (06:24→22:19)
[2022-04-16] MEDS: HEPARIN NA (PORCINE) 5,000 UNITS/ML 1ML VIAL SQ SCH ×3 (06:24→22:00)
[2022-04-16] MEDS: GABAPENTIN 400 MG CAPSULE GT SCH ×2 (09:40→22:00)
[2022-04-16] MEDS: FAMOTIDINE 20 MG TABLET PEG SCH ×2 (09:40→22:00)
[2022-04-16] MEDS: FUROSEMIDE 40 MG/4 ML INJECTABLE VIAL IVPUSH SCH (09:41)
[2022-04-16] MEDS: ASPIRIN 81 MG CHEWABLE TABLETS GT SCH (09:43)
[2022-04-16] MEDS: DOCUSATE NA 100 MG/10 ML UNIT-DOSE CUPS GT SCH ×2 (10:22→22:00)
[2022-04-16] MEDS: BUDESONIDE/FORMETEROL FUMARATE 160/4.5 mcg INHALER IH SCH ×2 (10:24→22:00)
[2022-04-16] MEDS: ACETYLCYSTEINE 20% 200MG/ML 4 ML VIAL *FOR ORAL / INH USE ONLY NEB SCH ×3 (12:47→20:48)
[2022-04-16] MEDS: ALBUTEROL SO4 0.083% IH SOL 2.5 MG/3 ML VIAL.NEB. NEB PRN (16:00)
[2022-04-16] MEDS ORDERED: ACETAMINOPHEN 1000 MG/100 ML BAG IVPB ONE (20:34)
[2022-04-16] MEDS: ROSUVASTATIN CA 20 MG TABLET NGT SCH (22:00)
[2022-04-17] MEDS: CEFEPIME 1 GM in DEXTROSE 5%-WATER 100 ML IVPB SCH ×3 (02:25→18:20)
[2022-04-17] MEDS: HEPARIN NA (PORCINE) 5,000 UNITS/ML 1ML VIAL SQ SCH ×4 (06:31→21:29)
[2022-04-17] MEDS: LEVOTHYROXINE 100 MCG, LEVOTHYROXINE 125 MCG GT SCH (06:31)
[2022-04-17] MEDS: INSULIN SLIDING SCALE (NOVOLOG) 1 VIAL SQ SCH ×4 (06:39→21:38)
[2022-04-17] MEDS: ACETYLCYSTEINE 20% 200MG/ML 4 ML VIAL *FOR ORAL / INH USE ONLY NEB SCH ×4 (07:25→20:11)
[2022-04-17] MEDS: ALBUTEROL SO4 0.083% IH SOL 2.5 MG/3 ML VIAL.NEB. NEB PRN ×4 (07:25→20:12)
[2022-04-17] MEDS ORDERED: SODIUM CHLORIDE 1,000 ML IV STA (07:54)
[2022-04-17] MEDS: ASPIRIN 81 MG CHEWABLE TABLETS GT SCH (09:43)
[2022-04-17] MEDS: FAMOTIDINE 20 MG TABLET PEG SCH ×2 (09:43→21:29)
[2022-04-17] MEDS: GABAPENTIN 400 MG CAPSULE GT SCH ×2 (09:43→21:29)
[2022-04-17] MEDS: DOCUSATE NA 100 MG/10 ML UNIT-DOSE CUPS GT SCH ×2 (09:45→21:28)
[2022-04-17] MEDS: BUDESONIDE/FORMETEROL FUMARATE 160/4.5 mcg INHALER IH SCH ×2 (09:46→21:30)
[2022-04-17] MEDS ORDERED: VANCOMYCIN 1 GM/200 ML PREMIX BAG IVPB ONE (10:00)
[2022-04-17] MEDS: ACETAMINOPHEN 1000 MG/100 ML BAG IVPB PRN ×2 (12:04→20:47)
[2022-04-17] MEDS ORDERED: METOPROLOL TARTRATE 5 MG/5 ML VIAL IVPUSH PRN (14:03)
[2022-04-17] MEDS: ROSUVASTATIN CA 20 MG TABLET NGT SCH (21:29)
[2022-04-18] MEDS ORDERED: SODIUM CHLORIDE 100 ML IV STA (01:07)
[2022-04-18] MEDS: CEFEPIME 1 GM in DEXTROSE 5%-WATER 100 ML IVPB SCH ×2 (02:31→09:39)
[2022-04-18] MEDS: HEPARIN NA (PORCINE) 5,000 UNITS/ML 1ML VIAL SQ SCH (05:13)
[2022-04-18] MEDS: INSULIN SLIDING SCALE (NOVOLOG) 1 VIAL SQ SCH ×4 (06:07→21:10)
[2022-04-18] MEDS: LEVOTHYROXINE 100 MCG, LEVOTHYROXINE 125 MCG GT SCH (06:08)
[2022-04-18] MEDS: ACETYLCYSTEINE 20% 200MG/ML 4 ML VIAL *FOR ORAL / INH USE ONLY NEB SCH ×4 (07:25→20:30)
[2022-04-18] MEDS: ALBUTEROL SO4 0.083% IH SOL 2.5 MG/3 ML VIAL.NEB. NEB PRN ×3 (07:25→20:30)
[2022-04-18] MEDS: GABAPENTIN 400 MG CAPSULE GT SCH (09:36)
[2022-04-18] MEDS: FAMOTIDINE 20 MG TABLET PEG SCH (09:36)
[2022-04-18] MEDS: SODIUM HYPOCHLORITE 0.25%- 473 ML BULK BOTTLE TP SCH ×2 (09:36→09:39)
[2022-04-18] MEDS: ASPIRIN 81 MG CHEWABLE TABLETS GT SCH (09:38)
[2022-04-18] MEDS: DOCUSATE NA 100 MG/10 ML UNIT-DOSE CUPS GT SCH ×2 (09:38→21:10)
[2022-04-18] MEDS: BUDESONIDE/FORMETEROL FUMARATE 160/4.5 mcg INHALER IH SCH ×2 (09:40→21:25)
[2022-04-18] MEDS ORDERED: TOBRAMYCIN SULFATE IVPB ONE (11:15)
[2022-04-18] MEDS ORDERED: SODIUM CHLORIDE IVPB ONE (11:15)
[2022-04-18] MEDS: AZTREONAM 2 GM in DEXTROSE 5%-WATER 100 ML IVPB SCH ×2 (11:19→17:57)
[2022-04-18 13:44] LABS: BASO % 0.4 % (0-2.0); EOS % 1.3 % (0-4.5); HEMOGLOBIN 11.6 GM/dL (10.7-15.3); LYMPH % 10.8 % (8-40); MCH 30.2 pg (25.7-33.7); MCHC 33.2 g/dl (32.0-36.0); MEAN CELL VOLUME 90.7 fl (80-96); MEAN PLT VOLUME 7.6 fl (7.5-11.1); MONO % 11.9 % (3.8-10.2); NEUT % 75.6 % (42.8-82.8); PLATELET COUNT 300 10^3/uL (134-434); RBC 3.85 M/mm3 (3.60-5.2); WHITE BLOOD COUNT 14.4 K/mm3 (4.0-10.0)
[2022-04-18 14:10] LABS: BLOOD UREA NITROGEN 15.5 mg/dL (7-18)
[2022-04-18 14:13] LABS: CREATININE 0.4 mg/dL (0.55-1.3)
[2022-04-18] MEDS: ACETAMINOPHEN 1000 MG/100 ML BAG IVPB PRN (18:29)
[2022-04-18] MEDS: VANCOMYCIN/WATER FOR INJ (PEG) 1,000 MG/200 ML BAG IVPB SCH (19:16)
[2022-04-18] MEDS ORDERED: SODIUM CHLORIDE FOR INHALATION 3 ML VIAL.NEB IH ONE (20:09)
[2022-04-18] MEDS: FAMOTIDINE 40 MG/5 ML ORAL SUSPENSION PEG SCH (21:25)
[2022-04-18] MEDS: GABAPENTIN 250 MG/5 ML ORAL SOLUTION, 470 ML BOTTLE PEG SCH (21:25)
[2022-04-18] MEDS: ROSUVASTATIN CA 20 MG TABLET NGT SCH (21:25)
[2022-04-18] MEDS ORDERED: SODIUM CHLORIDE 250 ML IV STA (21:31)
[2022-04-19] MEDS ORDERED: SODIUM CHLORIDE 250 ML IV STA (01:06)
[2022-04-19] MEDS: NYSTATIN POWDER 100,000 UNITS/GM - 15 GM TOPICAL POWDER TP SCH ×3 (01:21→21:30)
[2022-04-19] MEDS: AZTREONAM 2 GM in DEXTROSE 5%-WATER 100 ML IVPB SCH ×3 (01:21→17:22)
[2022-04-19] MEDS: ACETAMINOPHEN 1000 MG/100 ML BAG IVPB PRN ×2 (03:27→22:04)
[2022-04-19] MEDS ORDERED: IBUPROFEN 800 MG/8 ML IJ IVPB ONE (06:41)
[2022-04-19] MEDS: INSULIN SLIDING SCALE (NOVOLOG) 1 VIAL SQ SCH ×4 (06:54→21:37)
[2022-04-19] MEDS: LEVOTHYROXINE 100 MCG, LEVOTHYROXINE 125 MCG GT SCH (06:54)
[2022-04-19] MEDS: ACETYLCYSTEINE 20% 200MG/ML 4 ML VIAL *FOR ORAL / INH USE ONLY NEB SCH ×4 (07:44→20:09)
[2022-04-19] MEDS: ALBUTEROL SO4 0.083% IH SOL 2.5 MG/3 ML VIAL.NEB. NEB PRN ×4 (07:44→20:09)
[2022-04-19] MEDS: DOCUSATE NA 100 MG/10 ML UNIT-DOSE CUPS GT SCH ×2 (09:13→21:30)
[2022-04-19] MEDS: FAMOTIDINE 40 MG/5 ML ORAL SUSPENSION PEG SCH ×2 (09:13→21:30)
[2022-04-19] MEDS: ASPIRIN 81 MG CHEWABLE TABLETS GT SCH (09:13)
[2022-04-19] MEDS: SODIUM HYPOCHLORITE 0.25%- 473 ML BULK BOTTLE TP SCH (09:14)
[2022-04-19] MEDS: GABAPENTIN 250 MG/5 ML ORAL SOLUTION, 470 ML BOTTLE PEG SCH ×2 (09:14→21:30)
[2022-04-19] MEDS: BUDESONIDE/FORMETEROL FUMARATE 160/4.5 mcg INHALER IH SCH ×4 (09:15→22:04)
[2022-04-19] MEDS: ROSUVASTATIN CA 20 MG TABLET NGT SCH (21:30)
[2022-04-19] MEDS ORDERED: ACETAMINOPHEN INJECTION 100 ML IVPB ONE (21:51)
[2022-04-20] MEDS: AZTREONAM 2 GM in DEXTROSE 5%-WATER 100 ML IVPB SCH ×3 (01:30→17:17)
[2022-04-20] MEDS: LEVOTHYROXINE 100 MCG, LEVOTHYROXINE 125 MCG GT SCH (06:05)
[2022-04-20] MEDS: INSULIN SLIDING SCALE (NOVOLOG) 1 VIAL SQ SCH ×4 (06:05→21:54)
[2022-04-20] MEDS: ACETAMINOPHEN 1000 MG/100 ML BAG IVPB PRN ×2 (06:25→16:55)
[2022-04-20] MEDS: ACETYLCYSTEINE 20% 200MG/ML 4 ML VIAL *FOR ORAL / INH USE ONLY NEB SCH ×4 (07:20→19:22)
[2022-04-20] MEDS: ALBUTEROL SO4 0.083% IH SOL 2.5 MG/3 ML VIAL.NEB. NEB PRN ×4 (07:20→19:22)
[2022-04-20 09:23] LABS: HEMATOCRIT 30.1 % (32.4-45.2); HEMOGLOBIN 10.1 GM/dL (10.7-15.3); MCH 30.5 pg (25.7-33.7); MCHC 33.5 g/dl (32.0-36.0); MEAN CELL VOLUME 91.1 fl (80-96); PLATELET COUNT 292 10^3/uL (134-434); RBC 3.31 M/mm3 (3.60-5.2); RDW 14.9 % (11.6-15.6); WHITE BLOOD COUNT 20.8 K/mm3 (4.0-10.0)
[2022-04-20 10:01] LABS: CALCIUM 8.3 mg/dL (8.5-10.1)
[2022-04-20 10:02] LABS: ALBUMIN 1.5 g/dl (3.4-5.0); BLOOD UREA NITROGEN 14.5 mg/dL (7-18)
[2022-04-20 10:05] LABS: CREATININE 0.5 mg/dL (0.55-1.3)
[2022-04-20 10:06] LABS: TOT PROT 5.8 g/dl (6.4-8.2)
[2022-04-20 10:07] LABS: BILIRUBIN,TOTAL 0.3 mg/dL (0.2-1)
[2022-04-20 10:11] LABS: ANISOCYTOSIS 0; HELMET CELLS 0; HOWELL-JOLLY BODIES 0; MACROCYTOSIS 0; OVALOCYTE 0; ROULEAU 0; SICKELED CELLS 0; TARGET CELLS 0; TEAR DROP CELLS 0; TOXIC GRANULATION 0
[2022-04-20] MEDS: FAMOTIDINE 40 MG/5 ML ORAL SUSPENSION PEG SCH ×2 (10:34→21:56)
[2022-04-20] MEDS: HEPARIN NA (PORCINE) 5,000 UNITS/ML 1ML VIAL SQ SCH ×2 (10:35→21:52)
[2022-04-20] MEDS: busPIRone HCL 5 MG TABLET PO SCH ×3 (10:35→21:52)
[2022-04-20] MEDS: GABAPENTIN 250 MG/5 ML ORAL SOLUTION, 470 ML BOTTLE PEG SCH ×2 (10:35→21:54)
[2022-04-20] MEDS: ASPIRIN 81 MG CHEWABLE TABLETS GT SCH (10:35)
[2022-04-20] MEDS: SODIUM HYPOCHLORITE 0.25%- 473 ML BULK BOTTLE TP SCH (10:35)
[2022-04-20] MEDS: DOCUSATE NA 100 MG/10 ML UNIT-DOSE CUPS GT SCH ×2 (10:35→21:54)
[2022-04-20] MEDS: VALPROATE SODIUM 250 MG/5 ML UNIT DOSE CUP PEG SCH ×2 (10:35→21:52)
[2022-04-20] MEDS: NYSTATIN POWDER 100,000 UNITS/GM - 15 GM TOPICAL POWDER TP SCH ×2 (10:36→21:52)
[2022-04-20] MEDS: BUDESONIDE/FORMETEROL FUMARATE 160/4.5 mcg INHALER IH SCH ×2 (10:36→21:53)
[2022-04-20] MEDS: ROSUVASTATIN CA 20 MG TABLET NGT SCH (21:52)
[2022-04-20] MEDS: MONTELUKAST NA 10 MG TABLET PO SCH (21:53)
[2022-04-21] MEDS: MEROPENEM 1 GM in DEXTROSE 5%-WATER 100 ML IVPB SCH ×3 (01:42→17:18)
[2022-04-21] MEDS: busPIRone HCL 5 MG TABLET PO SCH ×3 (05:40→22:09)
[2022-04-21] MEDS: LEVOTHYROXINE 100 MCG, LEVOTHYROXINE 125 MCG GT SCH (06:07)
[2022-04-21] MEDS: INSULIN SLIDING SCALE (NOVOLOG) 1 VIAL SQ SCH ×4 (06:07→22:14)
[2022-04-21] MEDS: ACETYLCYSTEINE 20% 200MG/ML 4 ML VIAL *FOR ORAL / INH USE ONLY NEB SCH ×4 (08:01→21:05)
[2022-04-21] MEDS: ALBUTEROL SO4 0.083% IH SOL 2.5 MG/3 ML VIAL.NEB. NEB PRN ×2 (08:02→11:51)
[2022-04-21] MEDS: VALPROATE SODIUM 250 MG/5 ML UNIT DOSE CUP PEG SCH ×2 (09:47→22:08)
[2022-04-21] MEDS: ASPIRIN 81 MG CHEWABLE TABLETS GT SCH (09:47)
[2022-04-21] MEDS: DOCUSATE NA 100 MG/10 ML UNIT-DOSE CUPS GT SCH ×2 (09:47→22:09)
[2022-04-21] MEDS: SODIUM HYPOCHLORITE 0.25%- 473 ML BULK BOTTLE TP SCH (09:47)
[2022-04-21] MEDS: HEPARIN NA (PORCINE) 5,000 UNITS/ML 1ML VIAL SQ SCH ×2 (09:48→22:09)
[2022-04-21] MEDS: FAMOTIDINE 40 MG/5 ML ORAL SUSPENSION PEG SCH ×2 (09:49→22:08)
[2022-04-21] MEDS: BUDESONIDE/FORMETEROL FUMARATE 160/4.5 mcg INHALER IH SCH ×2 (09:49→22:17)
[2022-04-21] MEDS: NYSTATIN POWDER 100,000 UNITS/GM - 15 GM TOPICAL POWDER TP SCH ×2 (09:49→22:14)
[2022-04-21] MEDS: GABAPENTIN 250 MG/5 ML ORAL SOLUTION, 470 ML BOTTLE PEG SCH ×2 (09:52→22:09)
[2022-04-21] MEDS ORDERED: LIDOCAINE HCL/PF 2% SDV 5ML VIAL ONE (10:42)
[2022-04-21] MEDS ORDERED: ONDANSETRON 4 MG/2 ML VIAL ONE (10:42)
[2022-04-21] MEDS ORDERED: PROPOFOL 20 ML ONE (10:43)
[2022-04-21] MEDS ORDERED: SUCCINYLCHOLINE CHLORIDE 200 MG/10 ML SYRINGE ONE (10:44)
[2022-04-21] MEDS ORDERED: DEXMEDETOMIDINE HCL 200 MCG/2 ML IVPB ONE (11:01)
[2022-04-21] MEDS ORDERED: MIDAZOLAM HCL 2 MG/2 ML SINGLE DOSE VIAL ONE (11:07)
[2022-04-21] MEDS ORDERED: KETAMINE HCL 200 MG/20 ML VIAL ONE (11:08)
[2022-04-21] MEDS: ACETAMINOPHEN 1000 MG/100 ML BAG IVPB PRN (12:29)
[2022-04-21] MEDS: MONTELUKAST NA 10 MG TABLET PO SCH (22:08)
[2022-04-21] MEDS: ROSUVASTATIN CA 20 MG TABLET NGT SCH (22:09)
[2022-04-22] MEDS: MEROPENEM 1 GM in DEXTROSE 5%-WATER 100 ML IVPB SCH ×4 (01:32→21:56)
[2022-04-22] MEDS: ACETAMINOPHEN 1000 MG/100 ML BAG IVPB PRN ×2 (05:14→21:57)
[2022-04-22] MEDS: busPIRone HCL 5 MG TABLET PO SCH ×2 (05:44→16:04)
[2022-04-22] MEDS: LEVOTHYROXINE 100 MCG, LEVOTHYROXINE 125 MCG GT SCH (06:33)
[2022-04-22] MEDS: INSULIN SLIDING SCALE (NOVOLOG) 1 VIAL SQ SCH ×4 (06:33→22:18)
[2022-04-22] MEDS: ACETYLCYSTEINE 20% 200MG/ML 4 ML VIAL *FOR ORAL / INH USE ONLY NEB SCH ×4 (08:00→20:45)
[2022-04-22 08:31] LABS: HEMATOCRIT 29.1 % (32.4-45.2); HEMOGLOBIN 9.7 GM/dL (10.7-15.3); MCH 30.2 pg (25.7-33.7); MCHC 33.2 g/dl (32.0-36.0); PLATELET COUNT 374 10^3/uL (134-434); RDW 15.5 % (11.6-15.6); WHITE BLOOD COUNT 16.6 K/mm3 (4.0-10.0)
[2022-04-22 09:26] LABS: ALBUMIN 1.3 g/dl (3.4-5.0); BLOOD UREA NITROGEN 11.3 mg/dL (7-18); CALCIUM 8.5 mg/dL (8.5-10.1)
[2022-04-22 09:30] LABS: CREATININE 0.4 mg/dL (0.55-1.3)
[2022-04-22 09:32] LABS: BILIRUBIN,TOTAL 0.4 mg/dL (0.2-1); TOT PROT 5.5 g/dl (6.4-8.2)
[2022-04-22] MEDS: GABAPENTIN 250 MG/5 ML ORAL SOLUTION, 470 ML BOTTLE PEG SCH ×2 (10:00→21:56)
[2022-04-22] MEDS: DOCUSATE NA 100 MG/10 ML UNIT-DOSE CUPS GT SCH ×3 (10:04→22:25)
[2022-04-22] MEDS: BUDESONIDE/FORMETEROL FUMARATE 160/4.5 mcg INHALER IH SCH ×2 (10:05→21:57)
[2022-04-22] MEDS: ASPIRIN 81 MG CHEWABLE TABLETS GT SCH (10:47)
[2022-04-22] MEDS: MULTIVIT-MINERALS ORAL LIQUID PEG SCH (10:48)
[2022-04-22] MEDS: ZINC SULFATE 220 MG CAPSULE (FP) PEG SCH (10:52)
[2022-04-22 11:15] LABS: ANISOCYTOSIS 0; HELMET CELLS 0; HOWELL-JOLLY BODIES 0; MACROCYTOSIS 0; OVALOCYTE 0; ROULEAU 0; SICKELED CELLS 0; TARGET CELLS 0; TEAR DROP CELLS 0; TOXIC GRANULATION 0
[2022-04-22] MEDS: SODIUM HYPOCHLORITE 0.25%- 473 ML BULK BOTTLE TP SCH (11:45)
[2022-04-22] MEDS: VALPROATE SODIUM 250 MG/5 ML UNIT DOSE CUP PEG SCH ×2 (12:49→21:56)
[2022-04-22] MEDS: HEPARIN NA (PORCINE) 5,000 UNITS/ML 1ML VIAL SQ SCH ×2 (12:51→22:18)
[2022-04-22] MEDS: FAMOTIDINE 40 MG/5 ML ORAL SUSPENSION PEG SCH ×2 (12:53→21:56)
[2022-04-22] MEDS: ASCORBIC ACID 500 MG TABLET (FP) PEG SCH (12:53)
[2022-04-22] MEDS: NYSTATIN POWDER 100,000 UNITS/GM - 15 GM TOPICAL POWDER TP SCH ×2 (16:04→21:56)
[2022-04-22] MEDS: AMINO ACIDS/PROTEIN HYDROLYS 30 ML LIQUID.PKT PEG SCH (18:18)
[2022-04-22] MEDS: ROSUVASTATIN CA 20 MG TABLET NGT SCH (21:56)
[2022-04-22] MEDS: MONTELUKAST NA 10 MG TABLET GT SCH (21:56)
[2022-04-22] MEDS: busPIRone HCL 5 MG TABLET GT SCH (22:18)
[2022-04-23] MEDS: MEROPENEM 1 GM in DEXTROSE 5%-WATER 100 ML IVPB SCH ×3 (03:14→17:13)
[2022-04-23] MEDS: INSULIN SLIDING SCALE (NOVOLOG) 1 VIAL SQ SCH ×4 (06:01→23:26)
[2022-04-23] MEDS: LEVOTHYROXINE 100 MCG, LEVOTHYROXINE 125 MCG GT SCH (06:01)
[2022-04-23] MEDS: busPIRone HCL 5 MG TABLET GT SCH ×3 (06:01→23:26)
[2022-04-23] MEDS: ACETYLCYSTEINE 20% 200MG/ML 4 ML VIAL *FOR ORAL / INH USE ONLY NEB SCH ×4 (07:37→23:24)
[2022-04-23] MEDS: ACETAMINOPHEN 1000 MG/100 ML BAG IVPB PRN ×2 (11:15→18:29)
[2022-04-23] MEDS: ASPIRIN 81 MG CHEWABLE TABLETS GT SCH (11:17)
[2022-04-23] MEDS: DOCUSATE NA 100 MG/10 ML UNIT-DOSE CUPS GT SCH ×2 (11:18→23:25)
[2022-04-23] MEDS: ZINC SULFATE 220 MG CAPSULE (FP) PEG SCH (11:18)
[2022-04-23] MEDS: FAMOTIDINE 40 MG/5 ML ORAL SUSPENSION PEG SCH ×2 (11:18→23:25)
[2022-04-23] MEDS: MULTIVIT-MINERALS ORAL LIQUID PEG SCH (11:19)
[2022-04-23] MEDS: NYSTATIN POWDER 100,000 UNITS/GM - 15 GM TOPICAL POWDER TP SCH ×2 (11:19→23:26)
[2022-04-23] MEDS: VALPROATE SODIUM 250 MG/5 ML UNIT DOSE CUP PEG SCH ×2 (11:19→23:25)
[2022-04-23] MEDS: AMINO ACIDS/PROTEIN HYDROLYS 30 ML LIQUID.PKT PEG SCH ×2 (11:20→17:13)
[2022-04-23] MEDS: SODIUM HYPOCHLORITE 0.25%- 473 ML BULK BOTTLE TP SCH (11:20)
[2022-04-23] MEDS: GABAPENTIN 250 MG/5 ML ORAL SOLUTION, 470 ML BOTTLE PEG SCH ×2 (11:21→23:25)
[2022-04-23] MEDS: BUDESONIDE/FORMETEROL FUMARATE 160/4.5 mcg INHALER IH SCH ×2 (11:21→23:26)
[2022-04-23] MEDS: ASCORBIC ACID 500 MG TABLET (FP) PEG SCH (11:21)
[2022-04-23] MEDS: HEPARIN NA (PORCINE) 5,000 UNITS/ML 1ML VIAL SQ SCH ×2 (11:24→23:25)
[2022-04-23] MEDS ORDERED: ACETAMINOPHEN 1000 MG/100 ML BAG IVPB PRN (22:05)
[2022-04-23] MEDS ORDERED: clonazePAM 0.5 MG TABLET GT ONE (22:06)
[2022-04-23] MEDS: MONTELUKAST NA 10 MG TABLET GT SCH (23:25)
[2022-04-23] MEDS: ROSUVASTATIN CA 20 MG TABLET NGT SCH (23:25)
[2022-04-24] MEDS: MEROPENEM 1 GM in DEXTROSE 5%-WATER 100 ML IVPB SCH ×3 (01:20→17:48)
[2022-04-24] MEDS: LEVOTHYROXINE 100 MCG, LEVOTHYROXINE 125 MCG GT SCH (05:59)
[2022-04-24] MEDS: INSULIN SLIDING SCALE (NOVOLOG) 1 VIAL SQ SCH ×4 (06:03→21:12)
[2022-04-24] MEDS: busPIRone HCL 5 MG TABLET GT SCH ×3 (06:03→21:09)
[2022-04-24] MEDS: ACETYLCYSTEINE 20% 200MG/ML 4 ML VIAL *FOR ORAL / INH USE ONLY NEB SCH ×4 (08:46→21:26)
[2022-04-24] MEDS: ASCORBIC ACID 500 MG TABLET (FP) PEG SCH (09:05)
[2022-04-24] MEDS: ASPIRIN 81 MG CHEWABLE TABLETS GT SCH (09:05)
[2022-04-24] MEDS: AMINO ACIDS/PROTEIN HYDROLYS 30 ML LIQUID.PKT PEG SCH ×2 (09:06→17:48)
[2022-04-24] MEDS: DOCUSATE NA 100 MG/10 ML UNIT-DOSE CUPS GT SCH ×2 (09:06→21:09)
[2022-04-24] MEDS: HEPARIN NA (PORCINE) 5,000 UNITS/ML 1ML VIAL SQ SCH ×2 (09:07→21:10)
[2022-04-24] MEDS: MULTIVIT-MINERALS ORAL LIQUID PEG SCH (09:08)
[2022-04-24] MEDS: GABAPENTIN 250 MG/5 ML ORAL SOLUTION, 470 ML BOTTLE PEG SCH ×2 (09:08→22:01)
[2022-04-24] MEDS: ZINC SULFATE 220 MG CAPSULE (FP) PEG SCH (09:09)
[2022-04-24] MEDS: FAMOTIDINE 40 MG/5 ML ORAL SUSPENSION PEG SCH ×2 (09:09→21:11)
[2022-04-24] MEDS: VALPROATE SODIUM 250 MG/5 ML UNIT DOSE CUP PEG SCH ×2 (09:09→21:08)
[2022-04-24] MEDS: NYSTATIN POWDER 100,000 UNITS/GM - 15 GM TOPICAL POWDER TP SCH ×2 (09:10→22:01)
[2022-04-24] MEDS: clonazePAM 0.5 MG TABLET PO SCH ×2 (09:12→21:09)
[2022-04-24] MEDS: BUDESONIDE/FORMETEROL FUMARATE 160/4.5 mcg INHALER IH SCH ×2 (09:14→21:11)
[2022-04-24] MEDS: SODIUM HYPOCHLORITE 0.25%- 473 ML BULK BOTTLE TP SCH (10:11)
[2022-04-24] MEDS ORDERED: FUROSEMIDE 40 MG/4 ML INJECTABLE VIAL IVPUSH ONE (11:13)
[2022-04-24] MEDS: MONTELUKAST NA 10 MG TABLET GT SCH (21:10)
[2022-04-24] MEDS: ROSUVASTATIN CA 20 MG TABLET NGT SCH (21:10)
[2022-04-25] MEDS: MEROPENEM 1 GM in DEXTROSE 5%-WATER 100 ML IVPB SCH ×3 (01:27→19:30)
[2022-04-25] MEDS: busPIRone HCL 5 MG TABLET GT SCH ×3 (06:18→21:00)
[2022-04-25] MEDS: INSULIN SLIDING SCALE (NOVOLOG) 1 VIAL SQ SCH ×4 (06:18→21:01)
[2022-04-25] MEDS: LEVOTHYROXINE 100 MCG, LEVOTHYROXINE 125 MCG GT SCH (06:19)
[2022-04-25] MEDS: ACETYLCYSTEINE 20% 200MG/ML 4 ML VIAL *FOR ORAL / INH USE ONLY NEB SCH ×5 (08:14→20:40)
[2022-04-25] MEDS: AMINO ACIDS/PROTEIN HYDROLYS 30 ML LIQUID.PKT PEG SCH ×2 (10:21→17:52)
[2022-04-25] MEDS: clonazePAM 0.5 MG TABLET PO SCH ×2 (10:22→21:01)
[2022-04-25] MEDS: HEPARIN NA (PORCINE) 5,000 UNITS/ML 1ML VIAL SQ SCH ×2 (10:23→21:01)
[2022-04-25] MEDS: ZINC SULFATE 220 MG CAPSULE (FP) PEG SCH (10:23)
[2022-04-25] MEDS: ASCORBIC ACID 500 MG TABLET (FP) PEG SCH (10:23)
[2022-04-25] MEDS: NYSTATIN POWDER 100,000 UNITS/GM - 15 GM TOPICAL POWDER TP SCH ×2 (10:24→21:02)
[2022-04-25] MEDS: FAMOTIDINE 40 MG/5 ML ORAL SUSPENSION PEG SCH ×2 (10:24→21:02)
[2022-04-25] MEDS: ASPIRIN 81 MG CHEWABLE TABLETS GT SCH (10:24)
[2022-04-25] MEDS: MULTIVIT-MINERALS ORAL LIQUID PEG SCH (10:25)
[2022-04-25] MEDS: DOCUSATE NA 100 MG/10 ML UNIT-DOSE CUPS GT SCH ×2 (11:07→21:01)
[2022-04-25] MEDS: SODIUM HYPOCHLORITE 0.25%- 473 ML BULK BOTTLE TP SCH (11:12)
[2022-04-25] MEDS: VALPROATE SODIUM 250 MG/5 ML UNIT DOSE CUP PEG SCH ×2 (11:13→21:01)
[2022-04-25] MEDS: BUDESONIDE/FORMETEROL FUMARATE 160/4.5 mcg INHALER IH SCH ×2 (11:15→21:02)
[2022-04-25] MEDS: GABAPENTIN 250 MG/5 ML ORAL SOLUTION, 470 ML BOTTLE PEG SCH ×2 (11:19→21:01)
[2022-04-25] MEDS: DEXTROSE 5%-0.45% SALINE 1,000 ML IV SCH (20:40)
[2022-04-25] MEDS: ROSUVASTATIN CA 20 MG TABLET NGT SCH (21:01)
[2022-04-25] MEDS: MONTELUKAST NA 10 MG TABLET GT SCH (21:02)
[2022-04-26] MEDS: MEROPENEM 1 GM in DEXTROSE 5%-WATER 100 ML IVPB SCH ×3 (02:24→18:46)
[2022-04-26] MEDS: INSULIN SLIDING SCALE (NOVOLOG) 1 VIAL SQ SCH ×4 (06:33→22:19)
[2022-04-26] MEDS: busPIRone HCL 5 MG TABLET GT SCH ×3 (06:33→22:16)
[2022-04-26] MEDS: LEVOTHYROXINE 100 MCG, LEVOTHYROXINE 125 MCG GT SCH (06:33)
[2022-04-26] MEDS: ACETYLCYSTEINE 20% 200MG/ML 4 ML VIAL *FOR ORAL / INH USE ONLY NEB SCH ×4 (07:35→20:49)
[2022-04-26 10:11] LABS: BASO % 0.9 % (0-2.0); EOS % 4.7 % (0-4.5); HEMATOCRIT 30.8 % (32.4-45.2); HEMOGLOBIN 10.2 GM/dL (10.7-15.3); LYMPH % 26.4 % (8-40); MEAN CELL VOLUME 90.9 fl (80-96); MONO % 7.7 % (3.8-10.2); NEUT % 60.3 % (42.8-82.8); PLATELET COUNT 644 10^3/uL (134-434); RBC 3.39 M/mm3 (3.60-5.2); WHITE BLOOD COUNT 12.1 K/mm3 (4.0-10.0)
[2022-04-26 10:30] LABS: CALCIUM 8.1 mg/dL (8.5-10.1)
[2022-04-26 10:31] LABS: ALBUMIN 1.3 g/dl (3.4-5.0); BLOOD UREA NITROGEN 13.3 mg/dL (7-18)
[2022-04-26 10:34] LABS: CREATININE 0.3 mg/dL (0.55-1.3)
[2022-04-26 10:35] LABS: BILIRUBIN,TOTAL 0.2 mg/dL (0.2-1); TOT PROT 6.4 g/dl (6.4-8.2)
[2022-04-26] MEDS: HEPARIN NA (PORCINE) 5,000 UNITS/ML 1ML VIAL SQ SCH ×2 (12:17→22:16)
[2022-04-26] MEDS: SODIUM HYPOCHLORITE 0.25%- 473 ML BULK BOTTLE TP SCH (12:17)
[2022-04-26] MEDS: clonazePAM 0.5 MG TABLET PO SCH ×2 (12:18→22:11)
[2022-04-26] MEDS: DOCUSATE NA 100 MG/10 ML UNIT-DOSE CUPS GT SCH ×2 (12:18→22:41)
[2022-04-26] MEDS: ASCORBIC ACID 500 MG TABLET (FP) PEG SCH (12:18)
[2022-04-26] MEDS: ASPIRIN 81 MG CHEWABLE TABLETS GT SCH (12:18)
[2022-04-26] MEDS: NYSTATIN POWDER 100,000 UNITS/GM - 15 GM TOPICAL POWDER TP SCH ×2 (12:19→22:19)
[2022-04-26] MEDS: VALPROATE SODIUM 250 MG/5 ML UNIT DOSE CUP PEG SCH ×2 (12:19→22:16)
[2022-04-26] MEDS: ZINC SULFATE 220 MG CAPSULE (FP) PEG SCH (12:19)
[2022-04-26] MEDS: GABAPENTIN 250 MG/5 ML ORAL SOLUTION, 470 ML BOTTLE PEG SCH ×2 (12:22→22:19)
[2022-04-26] MEDS: MULTIVIT-MINERALS ORAL LIQUID PEG SCH (12:23)
[2022-04-26] MEDS: BUDESONIDE/FORMETEROL FUMARATE 160/4.5 mcg INHALER IH SCH ×2 (12:51→22:41)
[2022-04-26] MEDS: FAMOTIDINE 40 MG/5 ML ORAL SUSPENSION PEG SCH ×2 (12:51→22:19)
[2022-04-26] MEDS: AMINO ACIDS/PROTEIN HYDROLYS 30 ML LIQUID.PKT PEG SCH ×2 (12:52→18:46)
[2022-04-26] MEDS: DEXTROSE 5%-0.45% SALINE 1,000 ML IV SCH (20:17)
[2022-04-26] MEDS: ROSUVASTATIN CA 20 MG TABLET NGT SCH (22:17)
[2022-04-26] MEDS: MONTELUKAST NA 10 MG TABLET GT SCH (22:19)
[2022-04-27] MEDS: MEROPENEM 1 GM in DEXTROSE 5%-WATER 100 ML IVPB SCH ×3 (01:10→18:53)
[2022-04-27] MEDS: busPIRone HCL 5 MG TABLET GT SCH ×4 (06:04→21:54)
[2022-04-27] MEDS: DEXTROSE 5%-0.45% SALINE 1,000 ML IV SCH ×2 (06:04→20:55)
[2022-04-27] MEDS: LEVOTHYROXINE 100 MCG, LEVOTHYROXINE 125 MCG GT SCH ×2 (06:04→06:21)
[2022-04-27] MEDS: INSULIN SLIDING SCALE (NOVOLOG) 1 VIAL SQ SCH ×4 (06:21→21:51)
[2022-04-27] MEDS: ACETYLCYSTEINE 20% 200MG/ML 4 ML VIAL *FOR ORAL / INH USE ONLY NEB SCH ×4 (07:20→20:00)
[2022-04-27 08:41] LABS: HEMATOCRIT 31.4 % (32.4-45.2); HEMOGLOBIN 10.4 GM/dL (10.7-15.3); MCH 30.4 pg (25.7-33.7); MEAN CELL VOLUME 92.1 fl (80-96); MEAN PLT VOLUME 7.5 fl (7.5-11.1); PLATELET COUNT 558 10^3/uL (134-434); RBC 3.41 M/mm3 (3.60-5.2); RDW 14.9 % (11.6-15.6); WHITE BLOOD COUNT 10.8 K/mm3 (4.0-10.0)
[2022-04-27 10:03] LABS: ANISOCYTOSIS 0; MACROCYTOSIS 0
[2022-04-27] MEDS: DOCUSATE NA 100 MG/10 ML UNIT-DOSE CUPS GT SCH ×2 (11:20→22:03)
[2022-04-27] MEDS: ZINC SULFATE 220 MG CAPSULE (FP) PEG SCH (11:21)
[2022-04-27] MEDS: clonazePAM 0.5 MG TABLET PO SCH ×2 (11:21→21:54)
[2022-04-27] MEDS: ASPIRIN 81 MG CHEWABLE TABLETS GT SCH (11:21)
[2022-04-27] MEDS: ASCORBIC ACID 500 MG TABLET (FP) PEG SCH (11:21)
[2022-04-27] MEDS: AMINO ACIDS/PROTEIN HYDROLYS 30 ML LIQUID.PKT PEG SCH ×2 (11:22→17:31)
[2022-04-27] MEDS: FAMOTIDINE 40 MG/5 ML ORAL SUSPENSION PEG SCH ×2 (11:22→21:54)
[2022-04-27] MEDS: MULTIVIT-MINERALS ORAL LIQUID PEG SCH (11:23)
[2022-04-27] MEDS: VALPROATE SODIUM 250 MG/5 ML UNIT DOSE CUP PEG SCH ×2 (11:24→21:54)
[2022-04-27] MEDS: SODIUM HYPOCHLORITE 0.25%- 473 ML BULK BOTTLE TP SCH (11:25)
[2022-04-27] MEDS: NYSTATIN POWDER 100,000 UNITS/GM - 15 GM TOPICAL POWDER TP SCH ×2 (11:25→21:54)
[2022-04-27] MEDS: BUDESONIDE/FORMETEROL FUMARATE 160/4.5 mcg INHALER IH SCH ×2 (11:26→21:55)
[2022-04-27] MEDS: GABAPENTIN 250 MG/5 ML ORAL SOLUTION, 470 ML BOTTLE PEG SCH ×2 (12:01→21:54)
[2022-04-27] MEDS: ACETAMINOPHEN 650 MG/20.3 ML ORAL SOLUTION (CUPS) PEG PRN (20:32)
[2022-04-27] MEDS: ROSUVASTATIN CA 20 MG TABLET NGT SCH (21:54)
[2022-04-27] MEDS: MONTELUKAST NA 10 MG TABLET GT SCH (21:54)
[2022-04-28] MEDS: MEROPENEM 1 GM in DEXTROSE 5%-WATER 100 ML IVPB SCH ×3 (01:48→17:26)
[2022-04-28] MEDS: ACETAMINOPHEN 650 MG/20.3 ML ORAL SOLUTION (CUPS) PEG PRN (02:32)
[2022-04-28] MEDS: INSULIN SLIDING SCALE (NOVOLOG) 1 VIAL SQ SCH ×4 (06:06→21:46)
[2022-04-28] MEDS: LEVOTHYROXINE 100 MCG, LEVOTHYROXINE 125 MCG GT SCH (06:06)
[2022-04-28] MEDS: busPIRone HCL 5 MG TABLET GT SCH ×3 (06:06→21:30)
[2022-04-28] MEDS: ACETYLCYSTEINE 20% 200MG/ML 4 ML VIAL *FOR ORAL / INH USE ONLY NEB SCH ×4 (08:20→20:49)
[2022-04-28] MEDS: VALPROATE SODIUM 250 MG/5 ML UNIT DOSE CUP PEG SCH ×2 (09:14→21:30)
[2022-04-28] MEDS: MULTIVIT-MINERALS ORAL LIQUID PEG SCH (09:14)
[2022-04-28] MEDS: GABAPENTIN 250 MG/5 ML ORAL SOLUTION, 470 ML BOTTLE PEG SCH ×2 (09:15→21:27)
[2022-04-28] MEDS: FAMOTIDINE 40 MG/5 ML ORAL SUSPENSION PEG SCH ×2 (09:15→21:46)
[2022-04-28] MEDS: ZINC SULFATE 220 MG CAPSULE (FP) PEG SCH (09:15)
[2022-04-28] MEDS: DOCUSATE NA 100 MG/10 ML UNIT-DOSE CUPS GT SCH ×2 (09:16→21:31)
[2022-04-28] MEDS: AMINO ACIDS/PROTEIN HYDROLYS 30 ML LIQUID.PKT PEG SCH ×2 (09:16→17:28)
[2022-04-28] MEDS: ASPIRIN 81 MG CHEWABLE TABLETS GT SCH (09:16)
[2022-04-28] MEDS: NYSTATIN POWDER 100,000 UNITS/GM - 15 GM TOPICAL POWDER TP SCH ×2 (09:17→21:46)
[2022-04-28] MEDS: ASCORBIC ACID 500 MG TABLET (FP) PEG SCH (09:18)
[2022-04-28] MEDS: clonazePAM 0.5 MG TABLET PO SCH ×2 (09:18→21:31)
[2022-04-28] MEDS: SODIUM HYPOCHLORITE 0.25%- 473 ML BULK BOTTLE TP SCH (09:18)
[2022-04-28] MEDS: BUDESONIDE/FORMETEROL FUMARATE 160/4.5 mcg INHALER IH SCH ×2 (09:20→21:30)
[2022-04-28] MEDS: ACETAMINOPHEN 500 MG TABLET (FP) NGT SCH ×2 (09:21→21:29)
[2022-04-28] MEDS: COLLAGENASE CLOSTRIDIUM HIST. 30 GRAMS TUBE TP SCH (11:03)
[2022-04-28] MEDS: DEXTROSE 5%-0.45% SALINE 1,000 ML IV SCH (20:27)
[2022-04-28] MEDS: MONTELUKAST NA 10 MG TABLET GT SCH (21:29)
[2022-04-28] MEDS: ROSUVASTATIN CA 20 MG TABLET NGT SCH (21:31)
[2022-04-29] MEDS: MEROPENEM 1 GM in DEXTROSE 5%-WATER 100 ML IVPB SCH ×3 (02:09→17:25)
[2022-04-29] MEDS: busPIRone HCL 5 MG TABLET GT SCH ×3 (06:50→21:53)
[2022-04-29] MEDS: LEVOTHYROXINE 100 MCG, LEVOTHYROXINE 125 MCG GT SCH (06:50)
[2022-04-29] MEDS: INSULIN SLIDING SCALE (NOVOLOG) 1 VIAL SQ SCH ×4 (06:50→22:34)
[2022-04-29] MEDS: AMINO ACIDS/PROTEIN HYDROLYS 30 ML LIQUID.PKT PEG SCH ×2 (11:34→17:29)
[2022-04-29] MEDS: ASPIRIN 81 MG CHEWABLE TABLETS GT SCH (11:35)
[2022-04-29] MEDS: ASCORBIC ACID 500 MG TABLET (FP) PEG SCH (11:35)
[2022-04-29] MEDS: ZINC SULFATE 220 MG CAPSULE (FP) PEG SCH (11:35)
[2022-04-29] MEDS: VALPROATE SODIUM 250 MG/5 ML UNIT DOSE CUP PEG SCH ×2 (11:36→21:52)
[2022-04-29] MEDS: MULTIVIT-MINERALS ORAL LIQUID PEG SCH (11:36)
[2022-04-29] MEDS: clonazePAM 0.5 MG TABLET PO SCH ×2 (11:36→21:49)
[2022-04-29] MEDS: SODIUM HYPOCHLORITE 0.25%- 473 ML BULK BOTTLE TP SCH (11:37)
[2022-04-29] MEDS: DOCUSATE NA 100 MG/10 ML UNIT-DOSE CUPS GT SCH ×2 (11:38→22:34)
[2022-04-29] MEDS: ACETYLCYSTEINE 20% 200MG/ML 4 ML VIAL *FOR ORAL / INH USE ONLY NEB SCH ×4 (11:38→19:51)
[2022-04-29] MEDS: NYSTATIN POWDER 100,000 UNITS/GM - 15 GM TOPICAL POWDER TP SCH ×2 (11:39→22:34)
[2022-04-29] MEDS: GABAPENTIN 250 MG/5 ML ORAL SOLUTION, 470 ML BOTTLE PEG SCH ×2 (11:40→21:54)
[2022-04-29] MEDS: COLLAGENASE CLOSTRIDIUM HIST. 30 GRAMS TUBE TP SCH (11:41)
[2022-04-29] MEDS: BUDESONIDE/FORMETEROL FUMARATE 160/4.5 mcg INHALER IH SCH ×2 (11:42→21:50)
[2022-04-29] MEDS: ACETAMINOPHEN 500 MG TABLET (FP) NGT SCH ×2 (13:51→21:50)
[2022-04-29] MEDS: FAMOTIDINE 40 MG/5 ML ORAL SUSPENSION PEG SCH ×2 (13:53→21:52)
[2022-04-29] MEDS: DEXTROSE 5%-0.45% SALINE 1,000 ML IV SCH (21:49)
[2022-04-29] MEDS: ROSUVASTATIN CA 20 MG TABLET NGT SCH (21:49)
[2022-04-29] MEDS: MONTELUKAST NA 10 MG TABLET GT SCH (21:50)
[2022-04-30] MEDS: MEROPENEM 1 GM in DEXTROSE 5%-WATER 100 ML IVPB SCH ×3 (01:39→17:46)
[2022-04-30] MEDS: busPIRone HCL 5 MG TABLET GT SCH ×3 (05:37→22:35)
[2022-04-30] MEDS: LEVOTHYROXINE 100 MCG, LEVOTHYROXINE 125 MCG GT SCH (06:06)
[2022-04-30] MEDS: INSULIN SLIDING SCALE (NOVOLOG) 1 VIAL SQ SCH ×4 (06:06→22:23)
[2022-04-30] MEDS: ACETYLCYSTEINE 20% 200MG/ML 4 ML VIAL *FOR ORAL / INH USE ONLY NEB SCH ×4 (09:24→19:29)
[2022-04-30] MEDS: AMINO ACIDS/PROTEIN HYDROLYS 30 ML LIQUID.PKT PEG SCH ×2 (09:42→17:46)
[2022-04-30] MEDS: VALPROATE SODIUM 250 MG/5 ML UNIT DOSE CUP PEG SCH ×2 (09:42→22:29)
[2022-04-30] MEDS: GABAPENTIN 250 MG/5 ML ORAL SOLUTION, 470 ML BOTTLE PEG SCH ×2 (09:45→22:30)
[2022-04-30] MEDS: FAMOTIDINE 40 MG/5 ML ORAL SUSPENSION PEG SCH ×2 (09:45→22:31)
[2022-04-30] MEDS: ZINC SULFATE 220 MG CAPSULE (FP) PEG SCH (09:47)
[2022-04-30] MEDS: ASCORBIC ACID 500 MG TABLET (FP) PEG SCH (09:47)
[2022-04-30] MEDS: ASPIRIN 81 MG CHEWABLE TABLETS GT SCH (09:47)
[2022-04-30] MEDS: clonazePAM 0.5 MG TABLET PO SCH ×2 (09:47→22:30)
[2022-04-30] MEDS: DOCUSATE NA 100 MG/10 ML UNIT-DOSE CUPS GT SCH ×2 (10:53→22:13)
[2022-04-30] MEDS: NYSTATIN POWDER 100,000 UNITS/GM - 15 GM TOPICAL POWDER TP SCH ×2 (10:54→22:32)
[2022-04-30] MEDS: SODIUM HYPOCHLORITE 0.25%- 473 ML BULK BOTTLE TP SCH (10:54)
[2022-04-30] MEDS: COLLAGENASE CLOSTRIDIUM HIST. 30 GRAMS TUBE TP SCH (10:55)
[2022-04-30] MEDS: BUDESONIDE/FORMETEROL FUMARATE 160/4.5 mcg INHALER IH SCH ×2 (10:55→22:14)
[2022-04-30] MEDS: ACETAMINOPHEN 500 MG TABLET (FP) NGT SCH ×2 (10:55→22:32)
[2022-04-30] MEDS: MULTIVIT-MINERALS ORAL LIQUID PEG SCH (14:53)
[2022-04-30] MEDS: ACETAMINOPHEN 650 MG/20.3 ML ORAL SOLUTION (CUPS) PEG PRN (16:40)
[2022-04-30] MEDS: DEXTROSE 5%-0.45% SALINE 1,000 ML IV SCH (20:00)
[2022-04-30] MEDS: ROSUVASTATIN CA 20 MG TABLET NGT SCH (22:30)
[2022-04-30] MEDS: MONTELUKAST NA 10 MG TABLET GT SCH (22:30)
[2022-05-01] MEDS: MEROPENEM 1 GM in DEXTROSE 5%-WATER 100 ML IVPB SCH ×3 (01:33→17:37)
[2022-05-01] MEDS: busPIRone HCL 5 MG TABLET GT SCH ×3 (06:36→22:37)
[2022-05-01] MEDS: LEVOTHYROXINE 100 MCG, LEVOTHYROXINE 125 MCG GT SCH (06:36)
[2022-05-01] MEDS: INSULIN SLIDING SCALE (NOVOLOG) 1 VIAL SQ SCH ×4 (06:36→22:41)
[2022-05-01] MEDS: ACETYLCYSTEINE 20% 200MG/ML 4 ML VIAL *FOR ORAL / INH USE ONLY NEB SCH ×4 (07:30→21:22)
[2022-05-01] MEDS: DOCUSATE NA 100 MG/10 ML UNIT-DOSE CUPS GT SCH ×2 (09:52→22:42)
[2022-05-01] MEDS: AMINO ACIDS/PROTEIN HYDROLYS 30 ML LIQUID.PKT PEG SCH ×2 (09:59→17:37)
[2022-05-01] MEDS: SODIUM HYPOCHLORITE 0.25%- 473 ML BULK BOTTLE TP SCH (10:00)
[2022-05-01] MEDS: ASPIRIN 81 MG CHEWABLE TABLETS GT SCH (10:00)
[2022-05-01] MEDS: MULTIVIT-MINERALS ORAL LIQUID PEG SCH (10:00)
[2022-05-01] MEDS: VALPROATE SODIUM 250 MG/5 ML UNIT DOSE CUP PEG SCH ×2 (10:00→22:37)
[2022-05-01] MEDS: NYSTATIN POWDER 100,000 UNITS/GM - 15 GM TOPICAL POWDER TP SCH ×2 (10:01→22:39)
[2022-05-01] MEDS: ASCORBIC ACID 500 MG TABLET (FP) PEG SCH (10:02)
[2022-05-01] MEDS: BUDESONIDE/FORMETEROL FUMARATE 160/4.5 mcg INHALER IH SCH ×2 (10:02→22:42)
[2022-05-01] MEDS: ACETAMINOPHEN 500 MG TABLET (FP) NGT SCH ×2 (10:02→22:37)
[2022-05-01] MEDS: COLLAGENASE CLOSTRIDIUM HIST. 30 GRAMS TUBE TP SCH (10:02)
[2022-05-01] MEDS: ZINC SULFATE 220 MG CAPSULE (FP) PEG SCH (10:03)
[2022-05-01] MEDS: GABAPENTIN 250 MG/5 ML ORAL SOLUTION, 470 ML BOTTLE PEG SCH ×2 (10:04→22:38)
[2022-05-01] MEDS: FAMOTIDINE 40 MG/5 ML ORAL SUSPENSION PEG SCH ×2 (13:25→22:41)
[2022-05-01] MEDS: ACETAMINOPHEN 650 MG/20.3 ML ORAL SOLUTION (CUPS) PEG PRN (18:00)
[2022-05-01] MEDS: DEXTROSE 5%-0.45% SALINE 1,000 ML IV SCH (22:19)
[2022-05-01] MEDS: MONTELUKAST NA 10 MG TABLET GT SCH (22:39)
[2022-05-01] MEDS: ROSUVASTATIN CA 20 MG TABLET NGT SCH (22:39)
[2022-05-02] MEDS: MEROPENEM 1 GM in DEXTROSE 5%-WATER 100 ML IVPB SCH ×3 (01:11→17:04)
[2022-05-02] MEDS: busPIRone HCL 5 MG TABLET GT SCH ×3 (06:17→21:10)
[2022-05-02] MEDS: LEVOTHYROXINE 100 MCG, LEVOTHYROXINE 125 MCG GT SCH (06:17)
[2022-05-02] MEDS: INSULIN SLIDING SCALE (NOVOLOG) 1 VIAL SQ SCH ×4 (06:17→21:12)
[2022-05-02] MEDS: ACETYLCYSTEINE 20% 200MG/ML 4 ML VIAL *FOR ORAL / INH USE ONLY NEB SCH ×4 (07:30→20:48)
[2022-05-02] MEDS: ACETAMINOPHEN 500 MG TABLET (FP) NGT SCH ×2 (09:33→21:10)
[2022-05-02] MEDS: ASCORBIC ACID 500 MG TABLET (FP) PEG SCH (09:34)
[2022-05-02] MEDS: AMINO ACIDS/PROTEIN HYDROLYS 30 ML LIQUID.PKT PEG SCH ×2 (09:34→16:42)
[2022-05-02] MEDS: ASPIRIN 81 MG CHEWABLE TABLETS GT SCH (09:34)
[2022-05-02] MEDS: ZINC SULFATE 220 MG CAPSULE (FP) PEG SCH (09:34)
[2022-05-02] MEDS: DOCUSATE NA 100 MG/10 ML UNIT-DOSE CUPS GT SCH ×2 (09:34→21:11)
[2022-05-02] MEDS: SODIUM HYPOCHLORITE 0.25%- 473 ML BULK BOTTLE TP SCH (09:35)
[2022-05-02] MEDS: FAMOTIDINE 40 MG/5 ML ORAL SUSPENSION PEG SCH ×2 (09:36→21:12)
[2022-05-02] MEDS: VALPROATE SODIUM 250 MG/5 ML UNIT DOSE CUP PEG SCH ×2 (09:37→21:11)
[2022-05-02] MEDS: MULTIVIT-MINERALS ORAL LIQUID PEG SCH (09:37)
[2022-05-02] MEDS: GABAPENTIN 250 MG/5 ML ORAL SOLUTION, 470 ML BOTTLE PEG SCH ×2 (09:38→21:12)
[2022-05-02] MEDS: NYSTATIN POWDER 100,000 UNITS/GM - 15 GM TOPICAL POWDER TP SCH ×2 (09:39→21:12)
[2022-05-02] MEDS: COLLAGENASE CLOSTRIDIUM HIST. 30 GRAMS TUBE TP SCH (09:39)
[2022-05-02] MEDS: BUDESONIDE/FORMETEROL FUMARATE 160/4.5 mcg INHALER IH SCH ×2 (09:39→21:13)
[2022-05-02] MEDS: ACETAMINOPHEN 650 MG/20.3 ML ORAL SOLUTION (CUPS) PEG PRN (12:35)
[2022-05-02] MEDS: DEXTROSE 5%-0.45% SALINE 1,000 ML IV SCH (21:09)
[2022-05-02] MEDS: MONTELUKAST NA 10 MG TABLET GT SCH (21:10)
[2022-05-02] MEDS: ROSUVASTATIN CA 20 MG TABLET NGT SCH (21:10)
[2022-05-02] MEDS: clonazePAM 0.5 MG TABLET PO SCH (21:10)
[2022-05-03] MEDS: MEROPENEM 1 GM in DEXTROSE 5%-WATER 100 ML IVPB SCH ×3 (01:16→17:08)
[2022-05-03] MEDS: LEVOTHYROXINE 100 MCG, LEVOTHYROXINE 125 MCG GT SCH (06:49)
[2022-05-03] MEDS: INSULIN SLIDING SCALE (NOVOLOG) 1 VIAL SQ SCH ×4 (06:49→21:05)
[2022-05-03] MEDS: busPIRone HCL 5 MG TABLET GT SCH ×3 (06:49→21:06)
[2022-05-03] MEDS: ACETYLCYSTEINE 20% 200MG/ML 4 ML VIAL *FOR ORAL / INH USE ONLY NEB SCH ×4 (07:15→20:00)
[2022-05-03] MEDS: AMINO ACIDS/PROTEIN HYDROLYS 30 ML LIQUID.PKT PEG SCH ×2 (08:23→17:08)
[2022-05-03] MEDS: GABAPENTIN 250 MG/5 ML ORAL SOLUTION, 470 ML BOTTLE PEG SCH ×2 (09:45→21:05)
[2022-05-03] MEDS: ASCORBIC ACID 500 MG TABLET (FP) PEG SCH (09:46)
[2022-05-03] MEDS: DOCUSATE NA 100 MG/10 ML UNIT-DOSE CUPS GT SCH ×2 (09:46→21:06)
[2022-05-03] MEDS: clonazePAM 0.5 MG TABLET PO SCH ×2 (09:46→21:05)
[2022-05-03] MEDS: ZINC SULFATE 220 MG CAPSULE (FP) PEG SCH (09:46)
[2022-05-03] MEDS: ACETAMINOPHEN 500 MG TABLET (FP) NGT SCH ×2 (09:46→21:03)
[2022-05-03] MEDS: ASPIRIN 81 MG CHEWABLE TABLETS GT SCH (09:46)
[2022-05-03] MEDS: VALPROATE SODIUM 250 MG/5 ML UNIT DOSE CUP PEG SCH ×2 (09:47→21:05)
[2022-05-03] MEDS: COLLAGENASE CLOSTRIDIUM HIST. 30 GRAMS TUBE TP SCH (09:47)
[2022-05-03] MEDS: SODIUM HYPOCHLORITE 0.25%- 473 ML BULK BOTTLE TP SCH (09:47)
[2022-05-03] MEDS: NYSTATIN POWDER 100,000 UNITS/GM - 15 GM TOPICAL POWDER TP SCH ×2 (09:47→21:04)
[2022-05-03] MEDS: MULTIVIT-MINERALS ORAL LIQUID PEG SCH (09:47)
[2022-05-03] MEDS: FAMOTIDINE 40 MG/5 ML ORAL SUSPENSION PEG SCH ×2 (09:47→21:04)
[2022-05-03] MEDS: BUDESONIDE/FORMETEROL FUMARATE 160/4.5 mcg INHALER IH SCH ×2 (09:48→21:04)
[2022-05-03] MEDS: DEXTROSE 5%-0.45% SALINE 1,000 ML IV SCH (21:03)
[2022-05-03] MEDS: MONTELUKAST NA 10 MG TABLET GT SCH (21:03)
[2022-05-03] MEDS: ROSUVASTATIN CA 20 MG TABLET NGT SCH (21:05)
[2022-05-04] MEDS: MEROPENEM 1 GM in DEXTROSE 5%-WATER 100 ML IVPB SCH (02:25)
[2022-05-04] MEDS: busPIRone HCL 5 MG TABLET GT SCH ×3 (06:55→22:31)
[2022-05-04] MEDS: LEVOTHYROXINE 100 MCG, LEVOTHYROXINE 125 MCG GT SCH (06:55)
[2022-05-04] MEDS: INSULIN SLIDING SCALE (NOVOLOG) 1 VIAL SQ SCH ×4 (06:56→22:36)
[2022-05-04] MEDS: ACETYLCYSTEINE 20% 200MG/ML 4 ML VIAL *FOR ORAL / INH USE ONLY NEB SCH ×4 (08:16→20:25)
[2022-05-04] MEDS: ZINC SULFATE 220 MG CAPSULE (FP) PEG SCH (10:05)
[2022-05-04] MEDS: clonazePAM 0.5 MG TABLET PO SCH ×2 (10:08→22:31)
[2022-05-04] MEDS: ASPIRIN 81 MG CHEWABLE TABLETS GT SCH (10:08)
[2022-05-04] MEDS: ASCORBIC ACID 500 MG TABLET (FP) PEG SCH (10:08)
[2022-05-04] MEDS: DOCUSATE NA 100 MG/10 ML UNIT-DOSE CUPS GT SCH ×2 (10:08→22:32)
[2022-05-04] MEDS: AMINO ACIDS/PROTEIN HYDROLYS 30 ML LIQUID.PKT PEG SCH ×2 (10:08→17:19)
[2022-05-04] MEDS: ACETAMINOPHEN 500 MG TABLET (FP) NGT SCH ×2 (10:09→22:37)
[2022-05-04] MEDS: FAMOTIDINE 40 MG/5 ML ORAL SUSPENSION PEG SCH ×2 (10:12→22:31)
[2022-05-04] MEDS: MULTIVIT-MINERALS ORAL LIQUID PEG SCH (10:12)
[2022-05-04] MEDS: VALPROATE SODIUM 250 MG/5 ML UNIT DOSE CUP PEG SCH ×2 (10:13→22:31)
[2022-05-04] MEDS: BUDESONIDE/FORMETEROL FUMARATE 160/4.5 mcg INHALER IH SCH ×2 (10:14→22:37)
[2022-05-04] MEDS: NYSTATIN POWDER 100,000 UNITS/GM - 15 GM TOPICAL POWDER TP SCH ×2 (10:14→22:36)
[2022-05-04] MEDS: GABAPENTIN 250 MG/5 ML ORAL SOLUTION, 470 ML BOTTLE PEG SCH ×2 (10:17→22:36)
[2022-05-04] MEDS: COLLAGENASE CLOSTRIDIUM HIST. 30 GRAMS TUBE TP SCH (10:30)
[2022-05-04] MEDS: SODIUM HYPOCHLORITE 0.25%- 473 ML BULK BOTTLE TP SCH (10:30)
[2022-05-04] MEDS: ROSUVASTATIN CA 20 MG TABLET NGT SCH (22:31)
[2022-05-04] MEDS: MONTELUKAST NA 10 MG TABLET GT SCH (22:31)
[2022-05-05] MEDS: INSULIN SLIDING SCALE (NOVOLOG) 1 VIAL SQ SCH ×4 (06:44→22:38)
[2022-05-05] MEDS: LEVOTHYROXINE 100 MCG, LEVOTHYROXINE 125 MCG GT SCH (06:44)
[2022-05-05] MEDS: busPIRone HCL 5 MG TABLET GT SCH ×3 (06:44→21:26)
[2022-05-05] MEDS: ACETYLCYSTEINE 20% 200MG/ML 4 ML VIAL *FOR ORAL / INH USE ONLY NEB SCH ×4 (08:00→20:32)
[2022-05-05] MEDS: DOCUSATE NA 100 MG/10 ML UNIT-DOSE CUPS GT SCH ×2 (09:17→21:26)
[2022-05-05] MEDS: clonazePAM 0.5 MG TABLET PO SCH ×2 (09:17→21:24)
[2022-05-05] MEDS: AMINO ACIDS/PROTEIN HYDROLYS 30 ML LIQUID.PKT PEG SCH ×2 (09:17→16:48)
[2022-05-05] MEDS: ACETAMINOPHEN 500 MG TABLET (FP) NGT SCH ×2 (09:18→21:24)
[2022-05-05] MEDS: NYSTATIN POWDER 100,000 UNITS/GM - 15 GM TOPICAL POWDER TP SCH ×2 (09:19→21:28)
[2022-05-05] MEDS: ASCORBIC ACID 500 MG TABLET (FP) PEG SCH (09:19)
[2022-05-05] MEDS: ZINC SULFATE 220 MG CAPSULE (FP) PEG SCH (09:19)
[2022-05-05] MEDS: ASPIRIN 81 MG CHEWABLE TABLETS GT SCH (09:19)
[2022-05-05] MEDS: VALPROATE SODIUM 250 MG/5 ML UNIT DOSE CUP PEG SCH ×2 (09:19→21:25)
[2022-05-05] MEDS: MULTIVIT-MINERALS ORAL LIQUID PEG SCH (09:20)
[2022-05-05] MEDS: SODIUM HYPOCHLORITE 0.25%- 473 ML BULK BOTTLE TP SCH (09:20)
[2022-05-05] MEDS: FAMOTIDINE 40 MG/5 ML ORAL SUSPENSION PEG SCH ×2 (09:20→21:25)
[2022-05-05] MEDS: COLLAGENASE CLOSTRIDIUM HIST. 30 GRAMS TUBE TP SCH (09:21)
[2022-05-05] MEDS: BUDESONIDE/FORMETEROL FUMARATE 160/4.5 mcg INHALER IH SCH ×2 (09:21→21:28)
[2022-05-05] MEDS: GABAPENTIN 250 MG/5 ML ORAL SOLUTION, 470 ML BOTTLE PEG SCH ×2 (09:22→21:27)
[2022-05-05] MEDS: ROSUVASTATIN CA 20 MG TABLET NGT SCH (21:24)
[2022-05-05] MEDS: MONTELUKAST NA 10 MG TABLET GT SCH (21:24)
[2022-05-06] MEDS: INSULIN SLIDING SCALE (NOVOLOG) 1 VIAL SQ SCH ×4 (06:23→21:42)
[2022-05-06] MEDS: busPIRone HCL 5 MG TABLET GT SCH ×3 (06:26→21:23)
[2022-05-06] MEDS: LEVOTHYROXINE 100 MCG, LEVOTHYROXINE 125 MCG GT SCH (06:26)
[2022-05-06] MEDS: ACETYLCYSTEINE 20% 200MG/ML 4 ML VIAL *FOR ORAL / INH USE ONLY NEB SCH ×4 (08:45→20:19)
[2022-05-06] MEDS: clonazePAM 0.5 MG TABLET PO SCH ×2 (09:14→21:24)
[2022-05-06] MEDS: ASPIRIN 81 MG CHEWABLE TABLETS GT SCH (09:14)
[2022-05-06] MEDS: ASCORBIC ACID 500 MG TABLET (FP) PEG SCH (09:14)
[2022-05-06] MEDS: AMINO ACIDS/PROTEIN HYDROLYS 30 ML LIQUID.PKT PEG SCH ×2 (09:14→16:58)
[2022-05-06] MEDS: NYSTATIN POWDER 100,000 UNITS/GM - 15 GM TOPICAL POWDER TP SCH ×2 (09:15→21:26)
[2022-05-06] MEDS: DOCUSATE NA 100 MG/10 ML UNIT-DOSE CUPS GT SCH ×2 (09:15→21:25)
[2022-05-06] MEDS: ZINC SULFATE 220 MG CAPSULE (FP) PEG SCH (09:15)
[2022-05-06] MEDS: FAMOTIDINE 40 MG/5 ML ORAL SUSPENSION PEG SCH ×2 (09:16→21:26)
[2022-05-06] MEDS: GABAPENTIN 250 MG/5 ML ORAL SOLUTION, 470 ML BOTTLE PEG SCH ×2 (09:16→21:25)
[2022-05-06] MEDS: COLLAGENASE CLOSTRIDIUM HIST. 30 GRAMS TUBE TP SCH (09:16)
[2022-05-06] MEDS: VALPROATE SODIUM 250 MG/5 ML UNIT DOSE CUP PEG SCH (09:17)
[2022-05-06] MEDS: SODIUM HYPOCHLORITE 0.25%- 473 ML BULK BOTTLE TP SCH (09:17)
[2022-05-06] MEDS: MULTIVIT-MINERALS ORAL LIQUID PEG SCH (09:17)
[2022-05-06] MEDS: BUDESONIDE/FORMETEROL FUMARATE 160/4.5 mcg INHALER IH SCH ×2 (09:18→21:26)
[2022-05-06] MEDS: ACETAMINOPHEN 500 MG TABLET (FP) NGT SCH ×2 (09:18→21:24)
[2022-05-06] MEDS ORDERED: VALPROATE SODIUM 500 MG/5 ML VIAL IVPB ONE (21:10)
[2022-05-06] MEDS: MONTELUKAST NA 10 MG TABLET GT SCH (21:23)
[2022-05-06] MEDS: ROSUVASTATIN CA 20 MG TABLET NGT SCH (21:25)
[2022-05-07] MEDS ORDERED: VALPROATE SODIUM 500 MG/5 ML VIAL IVPB ONE ×2 (03:00→09:00)
[2022-05-07] MEDS: busPIRone HCL 5 MG TABLET GT SCH ×3 (06:22→21:22)
[2022-05-07] MEDS: INSULIN SLIDING SCALE (NOVOLOG) 1 VIAL SQ SCH ×4 (06:23→21:22)
[2022-05-07] MEDS: LEVOTHYROXINE 100 MCG, LEVOTHYROXINE 125 MCG GT SCH (06:23)
[2022-05-07] MEDS: ACETYLCYSTEINE 20% 200MG/ML 4 ML VIAL *FOR ORAL / INH USE ONLY NEB SCH ×4 (08:40→20:00)
[2022-05-07] MEDS: NYSTATIN POWDER 100,000 UNITS/GM - 15 GM TOPICAL POWDER TP SCH ×2 (10:11→21:22)
[2022-05-07] MEDS: ASCORBIC ACID 500 MG/5 ML UNIT DOSE CUP PEG SCH (11:20)
[2022-05-07] MEDS: ACETAMINOPHEN 650 MG/20.3 ML ORAL SOLUTION (CUPS) NGT SCH ×2 (11:41→21:24)
[2022-05-07] MEDS: clonazePAM 0.5 MG TABLET PO SCH ×2 (11:42→21:17)
[2022-05-07] MEDS: ZINC SULFATE 220 MG CAPSULE (FP) PEG SCH (11:42)
[2022-05-07] MEDS: AMINO ACIDS/PROTEIN HYDROLYS 30 ML LIQUID.PKT PEG SCH ×2 (11:42→17:36)
[2022-05-07] MEDS: ASPIRIN 81 MG CHEWABLE TABLETS GT SCH (11:42)
[2022-05-07] MEDS: GABAPENTIN 250 MG/5 ML ORAL SOLUTION, 470 ML BOTTLE PEG SCH ×2 (11:45→21:22)
[2022-05-07] MEDS: MULTIVIT-MINERALS ORAL LIQUID PEG SCH (11:45)
[2022-05-07] MEDS: DOCUSATE NA 100 MG/10 ML UNIT-DOSE CUPS GT SCH ×2 (11:46→21:23)
[2022-05-07] MEDS: SODIUM HYPOCHLORITE 0.25%- 473 ML BULK BOTTLE TP SCH (11:46)
[2022-05-07] MEDS: FAMOTIDINE 40 MG/5 ML ORAL SUSPENSION PEG SCH ×2 (11:47→21:22)
[2022-05-07] MEDS: COLLAGENASE CLOSTRIDIUM HIST. 30 GRAMS TUBE TP SCH (13:12)
[2022-05-07] MEDS: BUDESONIDE/FORMETEROL FUMARATE 160/4.5 mcg INHALER IH SCH ×2 (13:12→21:24)
[2022-05-07] MEDS: MONTELUKAST NA 10 MG TABLET GT SCH (21:17)
[2022-05-07] MEDS: VALPROATE SODIUM 250 MG/5 ML UNIT DOSE CUP PEG SCH (21:21)
[2022-05-07] MEDS: ROSUVASTATIN CA 20 MG TABLET NGT SCH (21:24)
[2022-05-08] MEDS: busPIRone HCL 5 MG TABLET GT SCH ×3 (06:47→22:35)
[2022-05-08] MEDS: LEVOTHYROXINE 100 MCG, LEVOTHYROXINE 125 MCG GT SCH (06:47)
[2022-05-08] MEDS: INSULIN SLIDING SCALE (NOVOLOG) 1 VIAL SQ SCH ×4 (06:49→22:33)
[2022-05-08] MEDS: ACETYLCYSTEINE 20% 200MG/ML 4 ML VIAL *FOR ORAL / INH USE ONLY NEB SCH ×4 (07:50→20:15)
[2022-05-08] MEDS: ALBUTEROL SO4 0.083% IH SOL 2.5 MG/3 ML VIAL.NEB. NEB PRN ×3 (07:50→15:52)
[2022-05-08] MEDS: AMINO ACIDS/PROTEIN HYDROLYS 30 ML LIQUID.PKT PEG SCH ×2 (09:15→17:57)
[2022-05-08] MEDS: ACETAMINOPHEN 650 MG/20.3 ML ORAL SOLUTION (CUPS) NGT SCH ×2 (10:14→22:34)
[2022-05-08] MEDS: METOPROLOL TARTRATE 25 MG TABLET (FP) PO SCH ×2 (10:15→22:31)
[2022-05-08] MEDS: clonazePAM 0.5 MG TABLET GT SCH ×2 (10:15→22:33)
[2022-05-08] MEDS: ZINC SULFATE 220 MG CAPSULE (FP) PEG SCH (10:15)
[2022-05-08] MEDS: ASPIRIN 81 MG CHEWABLE TABLETS GT SCH (10:15)
[2022-05-08] MEDS: MULTIVIT-MINERALS ORAL LIQUID PEG SCH (10:16)
[2022-05-08] MEDS: VALPROATE SODIUM 250 MG/5 ML UNIT DOSE CUP PEG SCH ×2 (10:17→22:35)
[2022-05-08] MEDS: DOCUSATE NA 100 MG/10 ML UNIT-DOSE CUPS GT SCH ×2 (10:17→22:35)
[2022-05-08] MEDS: FAMOTIDINE 40 MG/5 ML ORAL SUSPENSION GT SCH ×2 (10:18→22:33)
[2022-05-08] MEDS: ASCORBIC ACID 500 MG/5 ML UNIT DOSE CUP PEG SCH (10:18)
[2022-05-08] MEDS: GABAPENTIN 250 MG/5 ML ORAL SOLUTION, 470 ML BOTTLE GT SCH ×2 (10:23→22:33)
[2022-05-08] MEDS: NYSTATIN POWDER 100,000 UNITS/GM - 15 GM TOPICAL POWDER TP SCH ×2 (10:24→22:36)
[2022-05-08] MEDS: BUDESONIDE/FORMETEROL FUMARATE 160/4.5 mcg INHALER IH SCH ×2 (10:32→23:02)
[2022-05-08] MEDS: SODIUM HYPOCHLORITE 0.25%- 473 ML BULK BOTTLE TP SCH (11:22)
[2022-05-08] MEDS: COLLAGENASE CLOSTRIDIUM HIST. 30 GRAMS TUBE TP SCH (11:22)
[2022-05-08] MEDS: ACETAMINOPHEN 650 MG/20.3 ML ORAL SOLUTION (CUPS) PEG PRN (14:47)
[2022-05-08] MEDS: ROSUVASTATIN CA 20 MG TABLET NGT SCH (22:32)
[2022-05-08] MEDS: MONTELUKAST NA 10 MG TABLET GT SCH (22:34)
[2022-05-09] MEDS: LEVOTHYROXINE 100 MCG, LEVOTHYROXINE 125 MCG GT SCH (06:07)
[2022-05-09] MEDS: busPIRone HCL 5 MG TABLET GT SCH ×3 (06:07→21:01)
[2022-05-09] MEDS: INSULIN SLIDING SCALE (NOVOLOG) 1 VIAL SQ SCH ×4 (06:10→21:04)
[2022-05-09] MEDS: ALBUTEROL SO4 0.083% IH SOL 2.5 MG/3 ML VIAL.NEB. NEB PRN ×4 (08:20→20:05)
[2022-05-09] MEDS: ACETYLCYSTEINE 20% 200MG/ML 4 ML VIAL *FOR ORAL / INH USE ONLY NEB SCH ×4 (08:20→20:05)
[2022-05-09] MEDS: ASPIRIN 81 MG CHEWABLE TABLETS GT SCH (09:29)
[2022-05-09] MEDS: METOPROLOL TARTRATE 25 MG TABLET (FP) PO SCH ×2 (09:29→21:04)
[2022-05-09] MEDS: clonazePAM 0.5 MG TABLET GT SCH ×2 (09:29→21:02)
[2022-05-09] MEDS: DOCUSATE NA 100 MG/10 ML UNIT-DOSE CUPS GT SCH ×2 (09:30→21:03)
[2022-05-09] MEDS: AMINO ACIDS/PROTEIN HYDROLYS 30 ML LIQUID.PKT PEG SCH ×2 (09:30→17:59)
[2022-05-09] MEDS: KETOROLAC TROMETHAMINE 30 MG/1 ML VIAL IVPUSH PRN (09:31)
[2022-05-09] MEDS: GABAPENTIN 250 MG/5 ML ORAL SOLUTION, 470 ML BOTTLE GT SCH ×2 (09:32→21:04)
[2022-05-09] MEDS: VALPROATE SODIUM 250 MG/5 ML UNIT DOSE CUP PEG SCH ×2 (09:32→21:02)
[2022-05-09] MEDS: COLLAGENASE CLOSTRIDIUM HIST. 30 GRAMS TUBE TP SCH (09:33)
[2022-05-09] MEDS: FAMOTIDINE 40 MG/5 ML ORAL SUSPENSION GT SCH ×2 (09:33→21:04)
[2022-05-09] MEDS: BUDESONIDE/FORMETEROL FUMARATE 160/4.5 mcg INHALER IH SCH ×2 (09:34→21:04)
[2022-05-09] MEDS: MULTIVIT-MINERALS ORAL LIQUID PEG SCH (09:36)
[2022-05-09] MEDS: ACETAMINOPHEN 650 MG/20.3 ML ORAL SOLUTION (CUPS) NGT SCH ×2 (09:36→21:04)
[2022-05-09] MEDS: ASCORBIC ACID 500 MG/5 ML UNIT DOSE CUP PEG SCH (09:36)
[2022-05-09] MEDS: SODIUM HYPOCHLORITE 0.25%- 473 ML BULK BOTTLE TP SCH (09:36)
[2022-05-09] MEDS: NYSTATIN POWDER 100,000 UNITS/GM - 15 GM TOPICAL POWDER TP SCH ×2 (09:36→21:04)
[2022-05-09] MEDS: ROSUVASTATIN CA 20 MG TABLET NGT SCH (21:02)
[2022-05-09] MEDS: MONTELUKAST NA 10 MG TABLET GT SCH (21:02)
[2022-05-10] MEDS: LEVOTHYROXINE 100 MCG, LEVOTHYROXINE 125 MCG GT SCH (06:49)
[2022-05-10] MEDS: busPIRone HCL 5 MG TABLET GT SCH ×3 (06:49→22:17)
[2022-05-10] MEDS: INSULIN SLIDING SCALE (NOVOLOG) 1 VIAL SQ SCH ×4 (06:49→22:10)
[2022-05-10] MEDS: ACETYLCYSTEINE 20% 200MG/ML 4 ML VIAL *FOR ORAL / INH USE ONLY NEB SCH ×4 (07:58→20:31)
[2022-05-10] MEDS: ALBUTEROL SO4 0.083% IH SOL 2.5 MG/3 ML VIAL.NEB. NEB PRN ×4 (07:59→20:32)
[2022-05-10] MEDS: METOPROLOL TARTRATE 25 MG TABLET (FP) PO SCH ×2 (10:24→22:18)
[2022-05-10] MEDS: ASPIRIN 81 MG CHEWABLE TABLETS GT SCH (10:24)
[2022-05-10] MEDS: clonazePAM 0.5 MG TABLET GT SCH ×2 (10:25→22:18)
[2022-05-10] MEDS: AMINO ACIDS/PROTEIN HYDROLYS 30 ML LIQUID.PKT PEG SCH ×2 (10:26→18:17)
[2022-05-10] MEDS: ACETAMINOPHEN 650 MG/20.3 ML ORAL SOLUTION (CUPS) NGT SCH ×2 (10:26→22:18)
[2022-05-10] MEDS: ASCORBIC ACID 500 MG/5 ML UNIT DOSE CUP PEG SCH (10:28)
[2022-05-10] MEDS: BUDESONIDE/FORMETEROL FUMARATE 160/4.5 mcg INHALER IH SCH ×2 (10:28→22:11)
[2022-05-10] MEDS: COLLAGENASE CLOSTRIDIUM HIST. 30 GRAMS TUBE TP SCH (10:28)
[2022-05-10] MEDS: MULTIVIT-MINERALS ORAL LIQUID PEG SCH (10:29)
[2022-05-10] MEDS: GABAPENTIN 250 MG/5 ML ORAL SOLUTION, 470 ML BOTTLE GT SCH ×2 (10:29→22:18)
[2022-05-10] MEDS: SODIUM HYPOCHLORITE 0.25%- 473 ML BULK BOTTLE TP SCH (10:29)
[2022-05-10] MEDS: VALPROATE SODIUM 250 MG/5 ML UNIT DOSE CUP PEG SCH ×2 (10:29→22:18)
[2022-05-10] MEDS: DOCUSATE NA 100 MG/10 ML UNIT-DOSE CUPS GT SCH ×2 (10:29→22:17)
[2022-05-10] MEDS: FAMOTIDINE 40 MG/5 ML ORAL SUSPENSION GT SCH ×2 (10:30→22:18)
[2022-05-10] MEDS: NYSTATIN POWDER 100,000 UNITS/GM - 15 GM TOPICAL POWDER TP SCH ×2 (10:30→22:11)
[2022-05-10] MEDS ORDERED: DEXTROSE 5%-NORMAL SALINE 1,000 ML IV SCH (11:00)
[2022-05-10] MEDS: DEXTROSE 5%-NORMAL SALINE 1,000 ML IV SCH (12:00)
[2022-05-10] MEDS: KETOROLAC TROMETHAMINE 30 MG/1 ML VIAL IVPUSH PRN (17:15)
[2022-05-10] MEDS: ACETAMINOPHEN 650 MG/20.3 ML ORAL SOLUTION (CUPS) PEG PRN (18:18)
[2022-05-10] MEDS: ROSUVASTATIN CA 20 MG TABLET NGT SCH (22:18)
[2022-05-10] MEDS: MONTELUKAST NA 10 MG TABLET GT SCH (22:18)
[2022-05-11] MEDS: DEXTROSE 5%-NORMAL SALINE 1,000 ML IV SCH ×3 (04:59→14:12)
[2022-05-11] MEDS: busPIRone HCL 5 MG TABLET GT SCH ×3 (05:26→21:49)
[2022-05-11] MEDS: INSULIN SLIDING SCALE (NOVOLOG) 1 VIAL SQ SCH ×4 (06:13→21:50)
[2022-05-11] MEDS: LEVOTHYROXINE 100 MCG, LEVOTHYROXINE 125 MCG GT SCH (06:14)
[2022-05-11] MEDS: D5-1/2NS+20 MEQ KCL - 20 MEQ/1,000 ML INFUS.BAG IV SCH (08:16)
[2022-05-11] MEDS: ALBUTEROL SO4 0.083% IH SOL 2.5 MG/3 ML VIAL.NEB. NEB PRN ×3 (08:40→15:35)
[2022-05-11] MEDS: ACETYLCYSTEINE 20% 200MG/ML 4 ML VIAL *FOR ORAL / INH USE ONLY NEB SCH ×4 (08:40→20:05)
[2022-05-11] MEDS: AMINO ACIDS/PROTEIN HYDROLYS 30 ML LIQUID.PKT PEG SCH ×2 (09:17→16:39)
[2022-05-11] MEDS: ASPIRIN 81 MG CHEWABLE TABLETS GT SCH (09:17)
[2022-05-11] MEDS: SODIUM HYPOCHLORITE 0.25%- 473 ML BULK BOTTLE TP SCH (09:17)
[2022-05-11] MEDS: DOCUSATE NA 100 MG/10 ML UNIT-DOSE CUPS GT SCH ×2 (09:17→21:49)
[2022-05-11] MEDS: MULTIVIT-MINERALS ORAL LIQUID PEG SCH (09:17)
[2022-05-11] MEDS: clonazePAM 0.5 MG TABLET GT SCH ×2 (09:18→21:49)
[2022-05-11] MEDS: FAMOTIDINE 40 MG/5 ML ORAL SUSPENSION GT SCH ×2 (09:18→21:50)
[2022-05-11] MEDS: VALPROATE SODIUM 250 MG/5 ML UNIT DOSE CUP PEG SCH ×2 (09:18→21:49)
[2022-05-11] MEDS: GABAPENTIN 250 MG/5 ML ORAL SOLUTION, 470 ML BOTTLE GT SCH ×2 (09:18→21:50)
[2022-05-11] MEDS: METOPROLOL TARTRATE 25 MG TABLET (FP) PO SCH ×2 (09:18→21:50)
[2022-05-11] MEDS: COLLAGENASE CLOSTRIDIUM HIST. 30 GRAMS TUBE TP SCH (09:18)
[2022-05-11] MEDS: NYSTATIN POWDER 100,000 UNITS/GM - 15 GM TOPICAL POWDER TP SCH ×2 (09:18→21:50)
[2022-05-11] MEDS: ACETAMINOPHEN 650 MG/20.3 ML ORAL SOLUTION (CUPS) NGT SCH ×2 (09:19→21:50)
[2022-05-11] MEDS: BUDESONIDE/FORMETEROL FUMARATE 160/4.5 mcg INHALER IH SCH ×2 (09:19→21:50)
[2022-05-11] MEDS: ASCORBIC ACID 500 MG/5 ML UNIT DOSE CUP PEG SCH (09:19)
[2022-05-11] MEDS: KETOROLAC TROMETHAMINE 30 MG/1 ML VIAL IVPUSH PRN (18:02)
[2022-05-11] MEDS: ROSUVASTATIN CA 20 MG TABLET NGT SCH (21:49)
[2022-05-11] MEDS: MONTELUKAST NA 10 MG TABLET GT SCH (21:50)
[2022-05-12] MEDS: KETOROLAC TROMETHAMINE 30 MG/1 ML VIAL IVPUSH PRN ×2 (00:09→06:22)
[2022-05-12] MEDS: DEXTROSE 5%-NORMAL SALINE 1,000 ML IV SCH (05:06)
[2022-05-12] MEDS: busPIRone HCL 5 MG TABLET GT SCH ×3 (05:22→22:12)
[2022-05-12] MEDS: INSULIN SLIDING SCALE (NOVOLOG) 1 VIAL SQ SCH ×4 (06:32→21:58)
[2022-05-12] MEDS: LEVOTHYROXINE 100 MCG, LEVOTHYROXINE 125 MCG GT SCH (06:33)
[2022-05-12] MEDS: ACETYLCYSTEINE 20% 200MG/ML 4 ML VIAL *FOR ORAL / INH USE ONLY NEB SCH ×4 (08:09→20:48)
[2022-05-12] MEDS: ALBUTEROL SO4 0.083% IH SOL 2.5 MG/3 ML VIAL.NEB. NEB PRN ×2 (08:09→20:48)
[2022-05-12] MEDS: METOPROLOL TARTRATE 25 MG TABLET (FP) PO SCH ×2 (09:08→22:10)
[2022-05-12] MEDS: clonazePAM 0.5 MG TABLET GT SCH ×2 (09:08→22:12)
[2022-05-12] MEDS: ASPIRIN 81 MG CHEWABLE TABLETS GT SCH (09:09)
[2022-05-12] MEDS: ACETAMINOPHEN 650 MG/20.3 ML ORAL SOLUTION (CUPS) NGT SCH ×2 (09:10→22:10)
[2022-05-12] MEDS: AMINO ACIDS/PROTEIN HYDROLYS 30 ML LIQUID.PKT PEG SCH ×2 (09:10→17:30)
[2022-05-12] MEDS: DOCUSATE NA 100 MG/10 ML UNIT-DOSE CUPS GT SCH ×2 (09:11→22:12)
[2022-05-12] MEDS: FAMOTIDINE 40 MG/5 ML ORAL SUSPENSION GT SCH ×2 (09:12→22:12)
[2022-05-12] MEDS: MULTIVIT-MINERALS ORAL LIQUID PEG SCH (09:13)
[2022-05-12] MEDS: SODIUM HYPOCHLORITE 0.25%- 473 ML BULK BOTTLE TP SCH (09:14)
[2022-05-12] MEDS: VALPROATE SODIUM 250 MG/5 ML UNIT DOSE CUP PEG SCH ×2 (09:14→22:10)
[2022-05-12] MEDS: D5-1/2NS+20 MEQ KCL - 20 MEQ/1,000 ML INFUS.BAG IV SCH (09:15)
[2022-05-12] MEDS: GABAPENTIN 250 MG/5 ML ORAL SOLUTION, 470 ML BOTTLE GT SCH ×2 (09:16→22:11)
[2022-05-12] MEDS: BUDESONIDE/FORMETEROL FUMARATE 160/4.5 mcg INHALER IH SCH ×2 (09:16→22:12)
[2022-05-12] MEDS: NYSTATIN POWDER 100,000 UNITS/GM - 15 GM TOPICAL POWDER TP SCH ×2 (09:16→22:12)
[2022-05-12] MEDS: COLLAGENASE CLOSTRIDIUM HIST. 30 GRAMS TUBE TP SCH (09:16)
[2022-05-12] MEDS: ASCORBIC ACID 500 MG/5 ML UNIT DOSE CUP PEG SCH (09:16)
[2022-05-12 11:55] LABS: BASO % 0.8 % (0-2.0); EOS % 6.7 % (0-4.5); HEMATOCRIT 29.9 % (32.4-45.2); HEMOGLOBIN 9.8 GM/dL (10.7-15.3); LYMPH % 31.4 % (8-40); MCH 30.7 pg (25.7-33.7); MCHC 32.9 g/dl (32.0-36.0); MEAN CELL VOLUME 93.5 fl (80-96); MEAN PLT VOLUME 7.9 fl (7.5-11.1); MONO % 9.2 % (3.8-10.2); NEUT % 51.9 % (42.8-82.8); PLATELET COUNT 279 10^3/uL (134-434); RDW 16.4 % (11.6-15.6); WHITE BLOOD COUNT 9.6 K/mm3 (4.0-10.0)
[2022-05-12 12:46] LABS: ALBUMIN 1.4 g/dl (3.4-5.0); BILIRUBIN,TOTAL 0.3 mg/dL (0.2-1); BLOOD UREA NITROGEN 11.9 mg/dL (7-18); CALCIUM 8.8 mg/dL (8.5-10.1); CREATININE 0.4 mg/dL (0.55-1.3); TOT PROT 6.2 g/dl (6.4-8.2)
[2022-05-12] MEDS: ROSUVASTATIN CA 20 MG TABLET NGT SCH (22:12)
[2022-05-12] MEDS: MONTELUKAST NA 10 MG TABLET GT SCH (22:12)
[2022-05-13] MEDS: LEVOTHYROXINE 100 MCG, LEVOTHYROXINE 125 MCG GT SCH (06:15)
[2022-05-13] MEDS: busPIRone HCL 5 MG TABLET GT SCH ×3 (06:15→22:08)
[2022-05-13] MEDS: INSULIN SLIDING SCALE (NOVOLOG) 1 VIAL SQ SCH ×4 (06:19→22:52)
[2022-05-13] MEDS: ACETYLCYSTEINE 20% 200MG/ML 4 ML VIAL *FOR ORAL / INH USE ONLY NEB SCH ×4 (07:30→20:19)
[2022-05-13] MEDS: ALBUTEROL SO4 0.083% IH SOL 2.5 MG/3 ML VIAL.NEB. NEB PRN (07:30)
[2022-05-13] MEDS: METOPROLOL TARTRATE 25 MG TABLET (FP) PO SCH ×2 (09:50→22:10)
[2022-05-13] MEDS: clonazePAM 0.5 MG TABLET GT SCH ×2 (09:50→22:11)
[2022-05-13] MEDS: ASPIRIN 81 MG CHEWABLE TABLETS GT SCH (09:50)
[2022-05-13] MEDS: DOCUSATE NA 100 MG/10 ML UNIT-DOSE CUPS GT SCH ×2 (09:50→22:09)
[2022-05-13] MEDS: MULTIVIT-MINERALS ORAL LIQUID PEG SCH (09:51)
[2022-05-13] MEDS: VALPROATE SODIUM 250 MG/5 ML UNIT DOSE CUP PEG SCH ×2 (09:51→22:12)
[2022-05-13] MEDS: GABAPENTIN 250 MG/5 ML ORAL SOLUTION, 470 ML BOTTLE GT SCH ×2 (09:51→22:15)
[2022-05-13] MEDS: ACETAMINOPHEN 650 MG/20.3 ML ORAL SOLUTION (CUPS) NGT SCH ×2 (09:52→22:13)
[2022-05-13] MEDS: BUDESONIDE/FORMETEROL FUMARATE 160/4.5 mcg INHALER IH SCH ×2 (09:53→22:52)
[2022-05-13] MEDS: COLLAGENASE CLOSTRIDIUM HIST. 30 GRAMS TUBE TP SCH (09:53)
[2022-05-13] MEDS: ASCORBIC ACID 500 MG/5 ML UNIT DOSE CUP PEG SCH (09:53)
[2022-05-13] MEDS: NYSTATIN POWDER 100,000 UNITS/GM - 15 GM TOPICAL POWDER TP SCH ×2 (09:54→22:14)
[2022-05-13] MEDS: AMINO ACIDS/PROTEIN HYDROLYS 30 ML LIQUID.PKT PEG SCH ×2 (09:54→17:42)
[2022-05-13] MEDS: FAMOTIDINE 40 MG/5 ML ORAL SUSPENSION GT SCH ×2 (09:54→22:11)
[2022-05-13] MEDS: SODIUM HYPOCHLORITE 0.25%- 473 ML BULK BOTTLE TP SCH (09:54)
[2022-05-13] MEDS: MONTELUKAST NA 10 MG TABLET GT SCH (22:09)
[2022-05-13] MEDS: ROSUVASTATIN CA 20 MG TABLET NGT SCH (22:11)
[2022-05-14] MEDS: LEVOTHYROXINE 100 MCG, LEVOTHYROXINE 125 MCG GT SCH (06:40)
[2022-05-14] MEDS: busPIRone HCL 5 MG TABLET GT SCH ×3 (06:40→22:11)
[2022-05-14] MEDS: INSULIN SLIDING SCALE (NOVOLOG) 1 VIAL SQ SCH ×4 (06:40→22:26)
[2022-05-14] MEDS: ACETYLCYSTEINE 20% 200MG/ML 4 ML VIAL *FOR ORAL / INH USE ONLY NEB SCH ×4 (07:45→20:00)
[2022-05-14] MEDS: ASPIRIN 81 MG CHEWABLE TABLETS GT SCH (10:03)
[2022-05-14] MEDS: clonazePAM 0.5 MG TABLET GT SCH ×2 (10:03→22:10)
[2022-05-14] MEDS: AMINO ACIDS/PROTEIN HYDROLYS 30 ML LIQUID.PKT PEG SCH ×2 (10:03→17:36)
[2022-05-14] MEDS: SODIUM HYPOCHLORITE 0.25%- 473 ML BULK BOTTLE TP SCH (10:04)
[2022-05-14] MEDS: DOCUSATE NA 100 MG/10 ML UNIT-DOSE CUPS GT SCH ×2 (10:04→22:11)
[2022-05-14] MEDS: NYSTATIN POWDER 100,000 UNITS/GM - 15 GM TOPICAL POWDER TP SCH ×2 (10:05→22:11)
[2022-05-14] MEDS: COLLAGENASE CLOSTRIDIUM HIST. 30 GRAMS TUBE TP SCH (10:06)
[2022-05-14] MEDS: BUDESONIDE/FORMETEROL FUMARATE 160/4.5 mcg INHALER IH SCH ×2 (10:06→22:12)
[2022-05-14] MEDS: ASCORBIC ACID 500 MG/5 ML UNIT DOSE CUP PEG SCH (10:07)
[2022-05-14] MEDS: VALPROATE SODIUM 250 MG/5 ML UNIT DOSE CUP PEG SCH ×2 (10:07→22:11)
[2022-05-14] MEDS: GABAPENTIN 250 MG/5 ML ORAL SOLUTION, 470 ML BOTTLE GT SCH ×2 (10:11→22:13)
[2022-05-14] MEDS: METOPROLOL TARTRATE 25 MG TABLET (FP) PO SCH ×2 (10:24→22:10)
[2022-05-14] MEDS: ACETAMINOPHEN 650 MG/20.3 ML ORAL SOLUTION (CUPS) NGT SCH ×2 (11:09→22:09)
[2022-05-14] MEDS: MULTIVIT-MINERALS ORAL LIQUID PEG SCH (12:56)
[2022-05-14] MEDS: FAMOTIDINE 40 MG/5 ML ORAL SUSPENSION GT SCH ×2 (12:57→22:12)
[2022-05-14] MEDS: ACETAMINOPHEN 650 MG/20.3 ML ORAL SOLUTION (CUPS) PEG PRN (15:41)
[2022-05-14] MEDS: ROSUVASTATIN CA 20 MG TABLET NGT SCH (22:10)
[2022-05-14] MEDS: MONTELUKAST NA 10 MG TABLET GT SCH (22:10)
[2022-05-15] MEDS: ACETAMINOPHEN 650 MG/20.3 ML ORAL SOLUTION (CUPS) PEG PRN ×2 (06:11→14:26)
[2022-05-15] MEDS: LEVOTHYROXINE 100 MCG, LEVOTHYROXINE 125 MCG GT SCH (06:11)
[2022-05-15] MEDS: INSULIN SLIDING SCALE (NOVOLOG) 1 VIAL SQ SCH ×4 (06:11→22:09)
[2022-05-15] MEDS: busPIRone HCL 5 MG TABLET GT SCH ×3 (06:11→22:42)
[2022-05-15] MEDS: ACETYLCYSTEINE 20% 200MG/ML 4 ML VIAL *FOR ORAL / INH USE ONLY NEB SCH ×4 (07:40→20:35)
[2022-05-15] MEDS: COLLAGENASE CLOSTRIDIUM HIST. 30 GRAMS TUBE TP SCH (09:17)
[2022-05-15] MEDS: VALPROATE SODIUM 250 MG/5 ML UNIT DOSE CUP PEG SCH ×2 (09:17→22:43)
[2022-05-15] MEDS: FAMOTIDINE 40 MG/5 ML ORAL SUSPENSION GT SCH ×2 (09:17→22:43)
[2022-05-15] MEDS: NYSTATIN POWDER 100,000 UNITS/GM - 15 GM TOPICAL POWDER TP SCH ×2 (09:17→22:42)
[2022-05-15] MEDS: DOCUSATE NA 100 MG/10 ML UNIT-DOSE CUPS GT SCH ×2 (09:17→22:45)
[2022-05-15] MEDS: AMINO ACIDS/PROTEIN HYDROLYS 30 ML LIQUID.PKT PEG SCH ×2 (09:17→16:52)
[2022-05-15] MEDS: SODIUM HYPOCHLORITE 0.25%- 473 ML BULK BOTTLE TP SCH (09:17)
[2022-05-15] MEDS: BUDESONIDE/FORMETEROL FUMARATE 160/4.5 mcg INHALER IH SCH ×2 (09:18→22:44)
[2022-05-15] MEDS: GABAPENTIN 250 MG/5 ML ORAL SOLUTION, 470 ML BOTTLE GT SCH ×2 (09:23→22:42)
[2022-05-15] MEDS: clonazePAM 0.5 MG TABLET GT SCH ×2 (09:23→22:42)
[2022-05-15] MEDS: METOPROLOL TARTRATE 25 MG TABLET (FP) PO SCH ×2 (09:23→22:09)
[2022-05-15] MEDS: MULTIVIT-MINERALS ORAL LIQUID PEG SCH (09:23)
[2022-05-15] MEDS: ASPIRIN 81 MG CHEWABLE TABLETS GT SCH (09:24)
[2022-05-15] MEDS: ASCORBIC ACID 500 MG/5 ML UNIT DOSE CUP PEG SCH (09:25)
[2022-05-15] MEDS: ACETAMINOPHEN 650 MG/20.3 ML ORAL SOLUTION (CUPS) NGT SCH ×2 (09:55→22:43)
[2022-05-15] MEDS: ROSUVASTATIN CA 20 MG TABLET NGT SCH (22:42)
[2022-05-15] MEDS: MONTELUKAST NA 10 MG TABLET GT SCH (22:42)
[2022-05-16] MEDS: INSULIN SLIDING SCALE (NOVOLOG) 1 VIAL SQ SCH ×4 (05:59→21:22)
[2022-05-16] MEDS: LEVOTHYROXINE 100 MCG, LEVOTHYROXINE 125 MCG GT SCH (06:00)
[2022-05-16] MEDS: busPIRone HCL 5 MG TABLET GT SCH ×3 (06:00→21:04)
[2022-05-16] MEDS: ACETYLCYSTEINE 20% 200MG/ML 4 ML VIAL *FOR ORAL / INH USE ONLY NEB SCH ×4 (08:04→19:32)
[2022-05-16] MEDS: AMINO ACIDS/PROTEIN HYDROLYS 30 ML LIQUID.PKT PEG SCH ×2 (08:25→17:45)
[2022-05-16] MEDS: SODIUM HYPOCHLORITE 0.25%- 473 ML BULK BOTTLE TP SCH (09:15)
[2022-05-16] MEDS: ASPIRIN 81 MG CHEWABLE TABLETS GT SCH (09:15)
[2022-05-16] MEDS: MULTIVIT-MINERALS ORAL LIQUID PEG SCH (09:15)
[2022-05-16] MEDS: DOCUSATE NA 100 MG/10 ML UNIT-DOSE CUPS GT SCH ×2 (09:15→21:04)
[2022-05-16] MEDS: GABAPENTIN 250 MG/5 ML ORAL SOLUTION, 470 ML BOTTLE GT SCH ×2 (09:16→21:05)
[2022-05-16] MEDS: clonazePAM 0.5 MG TABLET GT SCH ×2 (09:16→21:04)
[2022-05-16] MEDS: METOPROLOL TARTRATE 25 MG TABLET (FP) PO SCH ×2 (09:16→21:04)
[2022-05-16] MEDS: NYSTATIN POWDER 100,000 UNITS/GM - 15 GM TOPICAL POWDER TP SCH ×2 (09:16→21:06)
[2022-05-16] MEDS: VALPROATE SODIUM 250 MG/5 ML UNIT DOSE CUP PEG SCH ×2 (09:16→21:03)
[2022-05-16] MEDS: ACETAMINOPHEN 650 MG/20.3 ML ORAL SOLUTION (CUPS) NGT SCH ×2 (09:17→21:05)
[2022-05-16] MEDS: COLLAGENASE CLOSTRIDIUM HIST. 30 GRAMS TUBE TP SCH (09:17)
[2022-05-16] MEDS: FAMOTIDINE 40 MG/5 ML ORAL SUSPENSION GT SCH ×2 (09:17→21:05)
[2022-05-16] MEDS: ASCORBIC ACID 500 MG/5 ML UNIT DOSE CUP PEG SCH (09:18)
[2022-05-16] MEDS: BUDESONIDE/FORMETEROL FUMARATE 160/4.5 mcg INHALER IH SCH ×2 (10:25→21:10)
[2022-05-16] MEDS: ROSUVASTATIN CA 20 MG TABLET NGT SCH (21:04)
[2022-05-16] MEDS: MONTELUKAST NA 10 MG TABLET GT SCH (21:04)
[2022-05-17] MEDS: ACETAMINOPHEN 650 MG/20.3 ML ORAL SOLUTION (CUPS) PEG PRN (04:01)
[2022-05-17] MEDS: busPIRone HCL 5 MG TABLET GT SCH ×3 (06:10→21:35)
[2022-05-17] MEDS: INSULIN SLIDING SCALE (NOVOLOG) 1 VIAL SQ SCH ×4 (06:10→21:51)
[2022-05-17] MEDS: LEVOTHYROXINE 100 MCG, LEVOTHYROXINE 125 MCG GT SCH (06:10)
[2022-05-17] MEDS: ACETYLCYSTEINE 20% 200MG/ML 4 ML VIAL *FOR ORAL / INH USE ONLY NEB SCH ×4 (08:00→20:23)
[2022-05-17] MEDS: AMINO ACIDS/PROTEIN HYDROLYS 30 ML LIQUID.PKT PEG SCH ×2 (09:00→17:09)
[2022-05-17] MEDS: MULTIVIT-MINERALS ORAL LIQUID PEG SCH (09:48)
[2022-05-17] MEDS: DOCUSATE NA 100 MG/10 ML UNIT-DOSE CUPS GT SCH ×2 (09:48→21:34)
[2022-05-17] MEDS: clonazePAM 0.5 MG TABLET GT SCH ×2 (09:48→21:31)
[2022-05-17] MEDS: VALPROATE SODIUM 250 MG/5 ML UNIT DOSE CUP PEG SCH ×2 (09:48→21:34)
[2022-05-17] MEDS: SODIUM HYPOCHLORITE 0.25%- 473 ML BULK BOTTLE TP SCH (09:48)
[2022-05-17] MEDS: ASPIRIN 81 MG CHEWABLE TABLETS GT SCH (09:48)
[2022-05-17] MEDS: NYSTATIN POWDER 100,000 UNITS/GM - 15 GM TOPICAL POWDER TP SCH ×2 (09:49→21:33)
[2022-05-17] MEDS: METOPROLOL TARTRATE 25 MG TABLET (FP) PO SCH ×2 (09:49→21:31)
[2022-05-17] MEDS: FAMOTIDINE 40 MG/5 ML ORAL SUSPENSION GT SCH ×2 (09:49→21:32)
[2022-05-17] MEDS: GABAPENTIN 250 MG/5 ML ORAL SOLUTION, 470 ML BOTTLE GT SCH ×2 (09:49→21:33)
[2022-05-17] MEDS: COLLAGENASE CLOSTRIDIUM HIST. 30 GRAMS TUBE TP SCH (09:50)
[2022-05-17] MEDS: ACETAMINOPHEN 650 MG/20.3 ML ORAL SOLUTION (CUPS) NGT SCH ×2 (09:50→21:31)
[2022-05-17] MEDS: BUDESONIDE/FORMETEROL FUMARATE 160/4.5 mcg INHALER IH SCH ×2 (09:50→21:32)
[2022-05-17] MEDS: ASCORBIC ACID 500 MG/5 ML UNIT DOSE CUP PEG SCH (09:51)
[2022-05-17 10:20] LABS: BASO % 0.8 % (0-2.0); EOS % 9.3 % (0-4.5); HEMATOCRIT 32.1 % (32.4-45.2); HEMOGLOBIN 10.4 GM/dL (10.7-15.3); LYMPH % 28.5 % (8-40); MCH 30.2 pg (25.7-33.7); MCHC 32.4 g/dl (32.0-36.0); MONO % 12.7 % (3.8-10.2); NEUT % 48.7 % (42.8-82.8); PLATELET COUNT 388 10^3/uL (134-434); RBC 3.45 M/mm3 (3.60-5.2)
[2022-05-17 10:26] LABS: CALCIUM 8.2 mg/dL (8.5-10.1)
[2022-05-17 10:27] LABS: ALBUMIN 1.4 g/dl (3.4-5.0); BLOOD UREA NITROGEN 20.4 mg/dL (7-18)
[2022-05-17 10:30] LABS: CREATININE 0.4 mg/dL (0.55-1.3)
[2022-05-17 10:31] LABS: BILIRUBIN,TOTAL 0.2 mg/dL (0.2-1); TOT PROT 6.3 g/dl (6.4-8.2)
[2022-05-17] MEDS: MONTELUKAST NA 10 MG TABLET GT SCH (21:30)
[2022-05-17] MEDS: ROSUVASTATIN CA 20 MG TABLET NGT SCH (21:30)
[2022-05-18] MEDS: INSULIN SLIDING SCALE (NOVOLOG) 1 VIAL SQ SCH ×4 (06:15→22:12)
[2022-05-18] MEDS: busPIRone HCL 5 MG TABLET GT SCH ×3 (06:15→22:06)
[2022-05-18] MEDS: LEVOTHYROXINE 100 MCG, LEVOTHYROXINE 125 MCG GT SCH (06:16)
[2022-05-18] MEDS: ACETYLCYSTEINE 20% 200MG/ML 4 ML VIAL *FOR ORAL / INH USE ONLY NEB SCH ×4 (07:40→19:42)
[2022-05-18] MEDS: AMINO ACIDS/PROTEIN HYDROLYS 30 ML LIQUID.PKT PEG SCH ×2 (07:42→17:09)
[2022-05-18] MEDS: ASPIRIN 81 MG CHEWABLE TABLETS GT SCH (09:11)
[2022-05-18] MEDS: ACETAMINOPHEN 650 MG/20.3 ML ORAL SOLUTION (CUPS) NGT SCH ×2 (09:12→22:06)
[2022-05-18] MEDS: VALPROATE SODIUM 250 MG/5 ML UNIT DOSE CUP PEG SCH ×2 (09:12→22:06)
[2022-05-18] MEDS: FAMOTIDINE 40 MG/5 ML ORAL SUSPENSION GT SCH ×2 (09:18→22:07)
[2022-05-18] MEDS: MULTIVIT-MINERALS ORAL LIQUID PEG SCH (09:19)
[2022-05-18] MEDS: SODIUM HYPOCHLORITE 0.25%- 473 ML BULK BOTTLE TP SCH (09:19)
[2022-05-18] MEDS: NYSTATIN POWDER 100,000 UNITS/GM - 15 GM TOPICAL POWDER TP SCH ×2 (09:20→22:08)
[2022-05-18] MEDS: METOPROLOL TARTRATE 25 MG TABLET (FP) PO SCH ×2 (09:20→22:18)
[2022-05-18] MEDS: BUDESONIDE/FORMETEROL FUMARATE 160/4.5 mcg INHALER IH SCH ×2 (09:21→22:08)
[2022-05-18] MEDS: COLLAGENASE CLOSTRIDIUM HIST. 30 GRAMS TUBE TP SCH (09:21)
[2022-05-18] MEDS: clonazePAM 0.5 MG TABLET GT SCH ×2 (09:26→22:06)
[2022-05-18] MEDS: GABAPENTIN 250 MG/5 ML ORAL SOLUTION, 470 ML BOTTLE GT SCH ×2 (09:29→22:07)
[2022-05-18] MEDS: ASCORBIC ACID 500 MG/5 ML UNIT DOSE CUP PEG SCH (10:26)
[2022-05-18] MEDS: DOCUSATE NA 100 MG/10 ML UNIT-DOSE CUPS GT SCH ×2 (10:26→22:28)
[2022-05-18] MEDS: ACETAMINOPHEN 650 MG/20.3 ML ORAL SOLUTION (CUPS) PEG PRN (15:01)
[2022-05-18] MEDS: DEXTROSE 5%-0.45% SALINE 1,000 ML IV SCH (17:09)
[2022-05-18] MEDS: MONTELUKAST NA 10 MG TABLET GT SCH (22:06)
[2022-05-18] MEDS: ROSUVASTATIN CA 20 MG TABLET NGT SCH (22:06)
[2022-05-19] MEDS: DEXTROSE 5%-0.45% SALINE 1,000 ML IV SCH ×2 (06:00→17:00)
[2022-05-19] MEDS: INSULIN SLIDING SCALE (NOVOLOG) 1 VIAL SQ SCH ×4 (06:39→22:31)
[2022-05-19] MEDS: LEVOTHYROXINE 100 MCG, LEVOTHYROXINE 125 MCG GT SCH (06:44)
[2022-05-19] MEDS: busPIRone HCL 5 MG TABLET GT SCH ×3 (06:44→22:04)
[2022-05-19] MEDS: ACETYLCYSTEINE 20% 200MG/ML 4 ML VIAL *FOR ORAL / INH USE ONLY NEB SCH ×4 (08:30→20:00)
[2022-05-19 09:09] LABS: BASO % 0.8 % (0-2.0); EOS % 8.6 % (0-4.5); HEMATOCRIT 29.9 % (32.4-45.2); HEMOGLOBIN 9.7 GM/dL (10.7-15.3); LYMPH % 32.3 % (8-40); MCH 30.1 pg (25.7-33.7); MCHC 32.4 g/dl (32.0-36.0); MEAN CELL VOLUME 92.9 fl (80-96); MEAN PLT VOLUME 8.1 fl (7.5-11.1); MONO % 12.6 % (3.8-10.2); NEUT % 45.7 % (42.8-82.8); PLATELET COUNT 431 10^3/uL (134-434); RBC 3.22 M/mm3 (3.60-5.2); RDW 16.3 % (11.6-15.6); WHITE BLOOD COUNT 8.7 K/mm3 (4.0-10.0)
[2022-05-19 09:17] LABS: ALBUMIN 1.4 g/dl (3.4-5.0); BLOOD UREA NITROGEN 17.6 mg/dL (7-18)
[2022-05-19 09:20] LABS: CREATININE 0.3 mg/dL (0.55-1.3)
[2022-05-19 09:21] LABS: BILIRUBIN,TOTAL 0.3 mg/dL (0.2-1); TOT PROT 6.2 g/dl (6.4-8.2)
[2022-05-19] MEDS: METOPROLOL TARTRATE 25 MG TABLET (FP) PO SCH ×2 (09:41→22:02)
[2022-05-19] MEDS: ASPIRIN 81 MG CHEWABLE TABLETS GT SCH (09:42)
[2022-05-19] MEDS: clonazePAM 0.5 MG TABLET GT SCH ×2 (09:42→22:02)
[2022-05-19] MEDS: AMINO ACIDS/PROTEIN HYDROLYS 30 ML LIQUID.PKT PEG SCH ×2 (09:42→16:59)
[2022-05-19] MEDS: FAMOTIDINE 40 MG/5 ML ORAL SUSPENSION GT SCH ×2 (09:43→22:03)
[2022-05-19] MEDS: GABAPENTIN 250 MG/5 ML ORAL SOLUTION, 470 ML BOTTLE GT SCH ×2 (09:43→22:06)
[2022-05-19] MEDS: MULTIVIT-MINERALS ORAL LIQUID PEG SCH (09:43)
[2022-05-19] MEDS: VALPROATE SODIUM 250 MG/5 ML UNIT DOSE CUP PEG SCH ×2 (09:44→22:04)
[2022-05-19] MEDS: NYSTATIN POWDER 100,000 UNITS/GM - 15 GM TOPICAL POWDER TP SCH ×2 (09:45→22:08)
[2022-05-19] MEDS: SODIUM HYPOCHLORITE 0.25%- 473 ML BULK BOTTLE TP SCH (09:45)
[2022-05-19] MEDS: DOCUSATE NA 100 MG/10 ML UNIT-DOSE CUPS GT SCH ×2 (09:45→22:04)
[2022-05-19] MEDS: BUDESONIDE/FORMETEROL FUMARATE 160/4.5 mcg INHALER IH SCH ×2 (09:46→22:07)
[2022-05-19] MEDS: COLLAGENASE CLOSTRIDIUM HIST. 30 GRAMS TUBE TP SCH (09:46)
[2022-05-19] MEDS: ACETAMINOPHEN 650 MG/20.3 ML ORAL SOLUTION (CUPS) NGT SCH ×2 (09:46→22:02)
[2022-05-19] MEDS: ASCORBIC ACID 500 MG/5 ML UNIT DOSE CUP PEG SCH (09:47)
[2022-05-19] MEDS: MONTELUKAST NA 10 MG TABLET GT SCH (22:02)
[2022-05-19] MEDS: ROSUVASTATIN CA 20 MG TABLET NGT SCH (22:02)
[2022-05-19 23:28] VITALS: RESP 20
[2022-05-20] MEDS: LEVOTHYROXINE 100 MCG, LEVOTHYROXINE 125 MCG GT SCH (06:08)
[2022-05-20] MEDS: busPIRone HCL 5 MG TABLET GT SCH (06:08)
[2022-05-20] MEDS: DEXTROSE 5%-0.45% SALINE 1,000 ML IV SCH (06:08)
[2022-05-20] MEDS: INSULIN SLIDING SCALE (NOVOLOG) 1 VIAL SQ SCH ×2 (06:20→11:48)
[2022-05-20 06:54] VITALS: BP 91/59; PULSE 106; TEMP 98.8
[2022-05-20] MEDS: ACETYLCYSTEINE 20% 200MG/ML 4 ML VIAL *FOR ORAL / INH USE ONLY NEB SCH (08:36)
[2022-05-20] MEDS: ASPIRIN 81 MG CHEWABLE TABLETS GT SCH (09:17)
[2022-05-20] MEDS: METOPROLOL TARTRATE 25 MG TABLET (FP) PO SCH (09:17)
[2022-05-20] MEDS: AMINO ACIDS/PROTEIN HYDROLYS 30 ML LIQUID.PKT PEG SCH (09:17)
[2022-05-20] MEDS: clonazePAM 0.5 MG TABLET GT SCH (09:18)
[2022-05-20] MEDS: DOCUSATE NA 100 MG/10 ML UNIT-DOSE CUPS GT SCH (09:22)
[2022-05-20] MEDS: SODIUM HYPOCHLORITE 0.25%- 473 ML BULK BOTTLE TP SCH (09:23)
[2022-05-20] MEDS: MULTIVIT-MINERALS ORAL LIQUID PEG SCH (09:23)
[2022-05-20] MEDS: VALPROATE SODIUM 250 MG/5 ML UNIT DOSE CUP PEG SCH (09:23)
[2022-05-20] MEDS: FAMOTIDINE 40 MG/5 ML ORAL SUSPENSION GT SCH (09:23)
[2022-05-20] MEDS: BUDESONIDE/FORMETEROL FUMARATE 160/4.5 mcg INHALER IH SCH (09:24)
[2022-05-20] MEDS: COLLAGENASE CLOSTRIDIUM HIST. 30 GRAMS TUBE TP SCH (09:24)
[2022-05-20] MEDS: NYSTATIN POWDER 100,000 UNITS/GM - 15 GM TOPICAL POWDER TP SCH (09:24)
[2022-05-20] MEDS: ACETAMINOPHEN 650 MG/20.3 ML ORAL SOLUTION (CUPS) NGT SCH (09:25)
[2022-05-20] MEDS: ASCORBIC ACID 500 MG/5 ML UNIT DOSE CUP PEG SCH (09:26)
[2022-05-20] MEDS: GABAPENTIN 250 MG/5 ML ORAL SOLUTION, 470 ML BOTTLE GT SCH (11:33)
== END 2022-05-20 15:39 | disposition hospice, inpatient (51) | DRG 853 ==
LOC: JER 22:05 → JERBED 04-11 00:05 → J4S 04-12 19:58
PROVIDERS: ADMIT Internal Medicine; ATTEND Family Medicine
PROC: 3E0G76Z Introduction of Nutritional Substance into Upper GI, Via Natural or Artificial Opening (ICD-10-PCS; 2022-04-15)
PROC: 0JB70ZZ Excision of Back Subcutaneous Tissue and Fascia, Open Approach (ICD-10-PCS; principal; 2022-04-24)
PROC: 0D20XUZ Change Feeding Device in Upper Intestinal Tract, External Approach (ICD-10-PCS; 2022-04-27)
PROC: 0D20XUZ Change Feeding Device in Upper Intestinal Tract, External Approach (ICD-10-PCS; 2022-05-11)
DX: A41.9 Sepsis, unspecified organism (principal); J69.0 Pneumonitis due to inhalation of food and vomit; J96.21 Acute and chronic respiratory failure with hypoxia; J96.22 Acute and chronic respiratory failure with hypercapnia; Z99.11 Dependence on respirator [ventilator] status; G93.1 Anoxic brain damage, not elsewhere classified; N39.0 Urinary tract infection, site not specified; K94.23 Gastrostomy malfunction; E11.9 Type 2 diabetes mellitus without complications; E03.9 Hypothyroidism, unspecified; I25.2 Old myocardial infarction; Z86.73 Personal history of transient ischemic attack (TIA), and cerebral infarction without residual deficits; E78.00 Pure hypercholesterolemia, unspecified; U09.9 Post COVID-19 condition, unspecified; Z88.0 Allergy status to penicillin; Y83.8 Other surgical procedures as the cause of abnormal reaction of the patient, or of later complication, without mention of misadventure at the time of the procedure; R13.10 Dysphagia, unspecified; L89.150 Pressure ulcer of sacral region, unstageable; I25.10 Atherosclerotic heart disease of native coronary artery without angina pectoris; G25.3 Myoclonus
CPT/HCPCS: 36415; 36600; 49450; 70450-TC; 71045-TC-FY; 74018-TC-FY; 74177-TC; 80048; 80053; 81003; 82803; 82962; 83605; 83880; 84443; 84484; 85025; 85610; 85730; 87040; 87070; 87086; 87184; 87186; 87205; 93005; 93010; 93306-TC; 94640; 99285-25; C9803-CS; G0480; J1644; Q9967; U0003; U0005